=== PATIENT | female | born 1965 | race Caucasian/White ===

== ENCOUNTER → 2016-08-23 | Outpatient (CLI) | payer BC ==
[2016-08-23 08:36] LABS: ALBUMIN 4.1 GM/DL (3.2-5.2); ALBUMIN/GLOBULIN RATIO 1.46 (1.00-1.93); ALKALINE PHOSPHATASE 49 U/L (45-117); ALT/SGPT 25 U/L (12-78); ANION GAP 7 MEQ/L (8-16); AST/SGOT 15 U/L (15-37); BILIRUBIN,TOTAL 0.5 MG/DL (0.2-1.0); BLOOD UREA NITROGEN 16 MG/DL (7-18); CALCIUM LEVEL 8.4 MG/DL (8.5-10.1); CARBON DIOXIDE LEVEL 27 MEQ/L (21-32); CHLORIDE LEVEL 107 MEQ/L (98-107); CHOLESTEROL LEVEL 196 MG/DL (<200); CREATININE FOR GFR 0.84 MG/DL (0.55-1.02); GLOMERULAR FILTRATION RATE > 60.0 (>51); GLUCOSE, FASTING 93 MG/DL (70-105); PERCENT SATURATION 31.6 % (13.2-37.4); POTASSIUM SERUM 3.8 MEQ/L (3.5-5.1); SODIUM LEVEL 141 MEQ/L (136-145); TOTAL IRON BINDING CAPACITY 335 UG/DL (250-450); TOTAL PROTEIN 6.9 GM/DL (6.4-8.2); TRIGLYCERIDES LEVEL 103 MG/DL (<150)
[2016-08-23 08:49] LABS: MEAN CORPUSCULAR HEMOGLOBIN 32.1 pg (27.0-33.0); MEAN CORPUSCULAR HGB CONC 34.4 g/dl (32.0-36.5); MEAN CORPUSCULAR VOLUME 93.4 fl (80.0-96.0); RED CELL DISTRIBUTION WIDTH 12.3 % (11.5-14.5); WHITE BLOOD COUNT 4.7 K/mm3 (4.0-10.0)
== END ==
LOC: M LAB 07:42
PROVIDERS: ATTEND Family Medicine
DX: D64.9 Anemia, unspecified (principal); R53.83 Other fatigue

== ENCOUNTER 2016-10-24 10:31 | Outpatient (CLI) | payer BC ==
[~2016-10-24] VITALS: Ht 174 cm; Wt 97.5 kg
[~2016-10-24 10:31] MED LIST: ASPI1TAB PO; DIPH25CA PO; LIDOCAINE 2% INJ 100 MG/5 ML SDV (FOR ANES.) As Ordered ONE; METO25TA4 PO; NS 1,000 ML IV ONE; OMEP40CA2 PO; PROBCAP4 PO; PROPOFOL 200 MG/20 ML VIAL As Ordered ONE; VITA1CAP7 PO; VITA500T PO
--- NOTE | 2016-10-24 11:40 | ROOR ---
Patient Name: Bonnie Romero Procedure Date: 10/24/2016 11:23 AM Date of : 1965 Age: 51 Room: [facility] Gender: Female Note Status: Finalized Procedure: Upper Endoscopy + Biopsies Indications: Heartburn, Follow-up of Gould's esophagus Providers: Emigdio Jones MD Referring MD: RODRIGO LOOMIS MD Requesting Provider: Medicines: Monitored Anesthesia Care Complications: No immediate complications. Procedure: Pre-Anesthesia Assessment: - The heart rate, respiratory rate, oxygen saturations, blood pressure, adequacy of pulmonary ventilation, and response to care were monitored throughout the procedure. The Endoscope was introduced through the mouth, and advanced to the second part of duodenum. The upper GI endoscopy was accomplished without difficulty. The patient tolerated the procedure well. Findings: The Z-line was irregular and was found 40 cm from the incisors. Multiple biopsies were obtained with cold forceps for evaluation to rule out Gould's Esophagus randomly at the gastroesophageal junction. A small hiatal hernia was present. No other significant abnormalities were identified in a careful examination of the stomach. The exam of the duodenum was otherwise normal. Impression: - Z-line irregular, 40 cm from the incisors. - Small hiatal hernia. - Multiple biopsies were obtained at the gastroesophageal junction. - The examination was otherwise normal. Recommendation: - Patient has a contact number available for emergencies. The signs and symptoms of potential delayed complications were discussed with the patient. Return to normal activities tomorrow. Written discharge instructions were provided to the patient. - High fiber diet. - Discharge patient to home. - Follow an antireflux regimen. - Continue present medications. - Await pathology results. - Telephone GI clinic for pathology results in 1 week. - Return to referring physician. - The findings and recommendations were discussed with the patient's family. Emigdio Jones MD Emigdio Jones MD 10/24/2016 11:40:09 AM This report has been signed electronically. Number of Addenda: 0 Note Initiated On: 10/24/2016 11:23 AM Estimated Blood Loss: Estimated blood loss: none.
--- NOTE | 2016-10-24 12:05 | ROOR ---
Patient Name: Bonnie Romero Procedure Date: 10/24/2016 11:24 AM Date of : 1965 Age: 51 Room: [facility] Gender: Female Note Status: Finalized Procedure: Total Colonoscopy to Cecum Indications: Screening for colorectal malignant neoplasm Providers: Emigdio Jones MD Referring MD: RODRIGO LOOMIS MD Requesting Provider: Medicines: Monitored Anesthesia Care Complications: No immediate complications. Procedure: Pre-Anesthesia Assessment: - The heart rate, respiratory rate, oxygen saturations, blood pressure, adequacy of pulmonary ventilation, and response to care were monitored throughout the procedure. The Colonoscope was introduced through the anus and advanced to the cecum, identified by appendiceal orifice and ileocecal valve. The colonoscopy was performed without difficulty. The patient tolerated the procedure well. The quality of the bowel preparation was excellent. Findings: The perianal and digital rectal examinations were normal. Non-bleeding internal hemorrhoids were found during retroflexion. The hemorrhoids were small and Grade I (internal hemorrhoids that do not prolapse). No other significant abnormalities were identified in a careful examination of the remainder of the colon. The exam was otherwise without abnormality on direct and retroflexion views. Impression: - Non-bleeding internal hemorrhoids. - The examination was otherwise normal on direct and retroflexion views. - No specimens collected. - The exam was otherwise normal to the cecum. Recommendation: - Patient has a contact number available for emergencies. The signs and symptoms of potential delayed complications were discussed with the patient. Return to normal activities tomorrow. Written discharge instructions were provided to the patient. - High fiber diet. - Discharge patient to home. - Continue present medications. - Repeat colonoscopy in 10 years for screening purposes. - Return to referring physician. - The findings and recommendations were discussed with the patient's family. Emidgio Jones MD Emigdio Jones MD 10/24/2016 12:05:12 PM This report has been signed electronically. Number of Addenda: 0 Note Initiated On: 10/24/2016 11:24 AM Estimated Blood Loss: Estimated blood loss: none.
[2016-10-24 12:20] VITALS: BP 149/90
== END 2016-10-24 12:35 | disposition home or self-care (01) ==
LOC: M OPP 10:31
PROVIDERS: ATTEND Internal Medicine Gastroenterology
DX: Z12.11 Encounter for screening for malignant neoplasm of colon (principal); K64.0 First degree hemorrhoids; R12 Heartburn; K22.70 Barrett's esophagus without dysplasia; K22.8 Other specified diseases of esophagus; K44.9 Diaphragmatic hernia without obstruction or gangrene; K58.9 Irritable bowel syndrome, unspecified; I10 Essential (primary) hypertension; Z86.73 Personal history of transient ischemic attack (TIA), and cerebral infarction without residual deficits; Z88.5 Allergy status to narcotic agent; Z79.82 Long term (current) use of aspirin; Z79.899 Other long term (current) drug therapy; Z83.71 Family history of colonic polyps; Z80.3 Family history of malignant neoplasm of breast; Z80.41 Family history of malignant neoplasm of ovary
CPT/HCPCS: 43239; 88305; G0121

== ENCOUNTER → 2016-11-08 | Outpatient (CLI) | payer BC ==
[~2016-11-08] MED LIST changes: +CYCL10TA PO; +DICL1GEL3; +FENT25PA TOP; +IBUP80TA PO; -LIDOCAINE 2% INJ 100 MG/5 ML SDV (FOR ANES.) As Ordered ONE; +METO1TAB32 PO; -NS 1,000 ML IV ONE; +OMEP20CA3 PO; +PERCOCET PO; -PROPOFOL 200 MG/20 ML VIAL As Ordered ONE; +VITA1CAP14 PO
--- NOTE | 2016-11-08 13:26 | REP ---
Right rib series: Five views including PA chest. History: Contusion. Findings: PA chest radiograph shows a small right-sided pneumothorax. An apical pleural air collection is seen measuring 1.1 cm in thickness. There is blunting of the right lateral pleural angle. An azygos lobe is noted incidentally. The lung [place] are otherwise clear. Multiple views of the right ribcage again shows a small right-sided pneumothorax to good advantage. There is a displaced somewhat overriding fracture of the posterolateral right 8th rib. Oblique radiographs show the nondisplaced fracture of the adjacent 9th, 10th, and 11th ribs. No bony destructive lesion is seen. Impression: 1. Posterolateral right 8th through 11th rib fractures. The right 8th rib fracture shows some overriding. The others are nondisplaced. 2. Small right pneumothorax, 1.1 cm. 3. Slight blunting of the right pleural angle. Signed by Raghu Hernandez MD 11/08/2016 02:57 P
== END ==
LOC: M WUC 11:09
PROVIDERS: ATTEND Physician Assistant
DX: S22.41XA Multiple fractures of ribs, right side, initial encounter for closed fracture (principal); X58.XXXA Exposure to other specified factors, initial encounter; Y92.89 Other specified places as the place of occurrence of the external cause; Y93.89 Activity, other specified; Y99.8 Other external cause status

== ENCOUNTER 2016-11-09 10:00 | Inpatient (IN) | payer BC ==
[~2016-11-09] VITALS: Ht 172.7 cm; Wt 101.3 kg
[~2016-11-09 10:00] MED LIST changes: -CYCL10TA PO; -DICL1GEL3; -FENT25PA TOP; -IBUP80TA PO; -METO1TAB32 PO; -OMEP20CA3 PO; -PERCOCET PO; -VITA1CAP14 PO
[2016-11-09] MEDS ORDERED: CYCL10TA PO (10:15)
[2016-11-09] MEDS ORDERED: METO1TAB32 PO (10:15)
[2016-11-09] MEDS ORDERED: DICL1GEL3 (10:15)
[2016-11-09] MEDS ORDERED: IBUP80TA PO (10:15)
[2016-11-09] MEDS ORDERED: NS 1,000 ML IV ONE (11:00)
[2016-11-09] MEDS ORDERED: ONDANSETRON 4MG/2ML VIAL (J2405) IV ONE (11:00)
[2016-11-09] MEDS ORDERED: MORPHINE 2 MG/ML 1ML SYRINGE IV PRN (11:00)
[2016-11-09 11:36] LABS: BASO % 0.6 % (0.0-1.0); EOS # 0.1 K/mm3 (0.0-0.50); EOS % 1.2 % (0.0-3.0); LARGE UNSTAINED CELL # 0.1 K/mm3 (0.0-0.4); LARGE UNSTAINED CELL % 1.8 % (0.0-4.0); LYMPH # 1.6 K/mm3 (1.5-4.5); LYMPH % 20.6 % (24.0-44.0); MEAN CORPUSCULAR HEMOGLOBIN 31.4 pg (27.0-33.0); MEAN CORPUSCULAR HGB CONC 34.4 g/dl (32.0-36.5); MEAN CORPUSCULAR VOLUME 91.5 fl (80.0-96.0); MONO # 0.4 K/mm3 (0.0-0.8); MONO % 5.4 % (0.0-5.0); NEUTROPHILS # 5.5 K/mm3 (1.8-7.7); NEUTROPHILS % 70.4 % (36.0-66.0); PLATELET COUNT, AUTOMATED 278 k/mm3 (150-450); RED CELL DISTRIBUTION WIDTH 12.4 % (11.5-14.5); WHITE BLOOD COUNT 7.8 K/mm3 (4.0-10.0)
[2016-11-09 11:59] LABS: INR 0.94
[2016-11-09 12:05] LABS: ALBUMIN 3.7 GM/DL (3.2-5.2); ALBUMIN/GLOBULIN RATIO 1.03 (1.00-1.93); ALKALINE PHOSPHATASE 61 U/L (45-117); ALT/SGPT 43 U/L (12-78); ANION GAP 8 MEQ/L (8-16); AST/SGOT 31 U/L (15-37); BILIRUBIN,DIRECT 0.1 MG/DL (0.0-0.2); BILIRUBIN,TOTAL 0.6 MG/DL (0.2-1.0); BLOOD UREA NITROGEN 9 MG/DL (7-18); CALCIUM LEVEL 8.6 MG/DL (8.5-10.1); CARBON DIOXIDE LEVEL 25 MEQ/L (21-32); CHLORIDE LEVEL 108 MEQ/L (98-107); CREATININE FOR GFR 0.69 MG/DL (0.55-1.02); GLOMERULAR FILTRATION RATE > 60.0 (>51); GLUCOSE, FASTING 90 MG/DL (70-105); POTASSIUM SERUM 3.6 MEQ/L (3.5-5.1); SODIUM LEVEL 141 MEQ/L (136-145); TOTAL PROTEIN 7.3 GM/DL (6.4-8.2)
[2016-11-09] MEDS ORDERED: ISOVUE-370 76% 100ML VIAL (Q9967) As Ordered ONE (12:10)
[2016-11-09] MEDS ORDERED: MORPHINE 4 MG/ML 1ML SYRINGE IV ONE (12:30)
--- NOTE | 2016-11-09 13:29 | ECGEPIP ---
Stationary ECG Study [facility] - ED Test Date: 2016-11-09 Pat Name: DARRELL CARDENAS Department: Room: - Gender: F Pharmacologist: PRISCILLA : 1965 Requested By: Floresita Vargas Order Number: [id number] Reading MD: Renetta Rodas Measurements Intervals [place] Rate: 76 P: 42 NH: 168 QRS: -16 QRSD: 108 T: 0 QT: 404 QTc: 455 Interpretive Statements SINUS RHYTHM MODERATE VOLTAGE CRITERIA FOR LVH, CONSIDER NORMAL VARIANT MINIMAL ST DEPRESSION Electronically Signed On 11-09-2016 13:29:40 EDT by Renetta Rodas
--- NOTE | 2016-11-09 13:38 | REP ---
CT CHEST WITH IV CONTRAST: HISTORY: Right flank pain. Known rib fracture. Comparison rib radiographs are from November 08, 2016. This showed fractures of the right 8th through 11th ribs and a small right-sided pneumothorax. CT CONTRAST DOSE: 100 mL of Isovue 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 Today's CT study confirms the presence of a tiny right-sided pneumothorax with a small quantity of air accumulated anteriorly and inferiorly in the right hemithorax. There is a small amount of right pleural fluid. There is subsegmental atelectasis with some air bronchograms in the right lower lobe and in the right middle lobe at the base. There is a little fissural thickening on the right. Left lung shows discoid atelectasis in the lower lobe lingula at its base. There is no evidence of mediastinal hematoma. Thoracic aorta enhances homogeneously and is normal in course and contour. The pulmonary arterial tree is unremarkable. There is a small noncalcified pulmonary nodule measuring 4.5 mm in diameter. This is in the right upper lobe abutting the minor fissure. It may be a small pleural plaque. No other significant pulmonary nodule is appreciated. Bone window settings demonstrate fractures of the right 8th, 9th, 10th, and 11th ribs nondisplaced. IMPRESSION: 1. Right 8th through 11th rib fractures. 2. Small quantity of pleural fluid and small pneumothorax on the right. 3. Bilateral lower lobe, right middle lobe, and lingular atelectatic changes. 4. 4.5 mm noncalcified pulmonary nodule in the right upper lobe. Follow-up chest CT study recommended in 6-12 months. Signed by Raghu Hernandez MD 11/09/2016 03:23 P
--- NOTE | 2016-11-09 14:00 | REP ---
CT abdomen and pelvis with IV but without oral contrast: History: Known rib fractures. Right flank pain. CT contrast dose: 100 mL of intravenous Isovue [address] findings: The liver and spleen are normal in size and homogeneous in texture. Pancreas and gallbladder are unremarkable. No adrenal lesion is seen. The kidneys enhance symmetrically and are morphologically intact. No retroperitoneal hematoma or mass lesion is seen. Small and large intestinal bowel loops are unremarkable in the abdomen and pelvis. The patient is status post hysterectomy. There is a cystic lesion in the left ovary or left adnexa measuring 6.5 x 4.3 cm. No right ovarian abnormality. Urinary bladder is intact. No abdominal wall defect is seen. Bone window settings show the right lower rib cage fractures as outlined on the chest CT. No other fracture is seen. Impression: 1. Incidental 6.4 cm cystic lesion left ovary. Ovarian neoplasm cannot be excluded. Consider pelvic sonography. 2. No evidence of intra-abdominal injury. Signed by Raghu Hernandez MD 11/09/2016 03:24 P
[2016-11-09] MEDS: fentaNYL 100 MCG/2 ML INJECTION (J3010) IV PRN ×3 (14:20→17:51)
[2016-11-09] MEDS ORDERED: KCL 20MEQ IN D5/NS 1000ML 1,000 ML IV SCH (14:34)
[2016-11-09] MEDS ORDERED: FENTANYL 2MCG/ML BUPIVACAINE 0.0625% NACL 250ML IV BAG As Ordered ONE (14:41)
[2016-11-09] MEDS ORDERED: fentaNYL 100 MCG/2 ML INJECTION (J3010) As Ordered ONE (14:41)
[2016-11-09] MEDS ORDERED: MIDAZOLAM INJ 2 MG/2 ML VIAL (J2250) As Ordered ONE (14:41)
[2016-11-09] MEDS ORDERED: ACETAMINOPHEN TAB 650MG DOSE (2X325MG) PO PRN (14:45)
[2016-11-09] MEDS ORDERED: LEVALBUTEROL 1.25 MG/0.5 ML CONCENTRATE NEB NEB PRN (14:45)
[2016-11-09] MEDS ORDERED: BISACODYL 10 MG SUPP PR PRN (14:45)
[2016-11-09] MEDS ORDERED: ONDANSETRON 4MG/2ML VIAL (J2405) IV PRN ×2 (14:45→16:15)
[2016-11-09] MEDS ORDERED: VITA1CAP14 PO (15:05)
[2016-11-09] MEDS ORDERED: OMEP20CA3 PO (15:05)
[2016-11-09] MEDS ORDERED: DIPH25CA PO (15:06)
[2016-11-09] MEDS: MIDAZOLAM INJ 2 MG/2 ML VIAL (J2250) IV PRN ×2 (15:20→15:27)
[2016-11-09] MEDS ORDERED: BUPIVACAINE HCL 0.25% 30 ML VIAL As Ordered ONE (15:42)
[2016-11-09] MEDS ORDERED: NALOXONE INJ 0.4 MG/1 ML VIAL (J2310) IV PRN (16:15)
[2016-11-09] MEDS ORDERED: fentaNYL 100 MCG/2 ML INJECTION (J3010) IV PRN (16:15)
[2016-11-09] MEDS ORDERED: WALLBOXKEY XX PRN (16:15)
[2016-11-09] MEDS ORDERED: EPIDURAL/PCA KEYS XX PRN (16:15)
[2016-11-09] MEDS ORDERED: METOCLOPRAMIDE INJ 10MG/2ML VIAL (J2765) IV PRN (16:15)
[2016-11-09] MEDS ORDERED: LR 1,000 ML IV SCH (16:15)
[2016-11-09 16:50] VITALS: BP 133/81
[2016-11-09 17:00] VITALS: BP 136/90
[2016-11-09] MEDS ORDERED: BUPIVACAINE/EPIN 0.25% 30 ML VIAL ONE (17:17)
[2016-11-09] MEDS ORDERED: LIDOCAINE 1% MDV 20ML VIAL ONE (17:17)
[2016-11-09 17:30] VITALS: BP 158/89
[2016-11-09] MEDS: MOM 30ML SUSPENSION UDC PO SCH (17:32)
[2016-11-09] MEDS: KETOROLAC 30 MG/ML VIAL (J1885) IV SCH ×2 (17:32→21:13)
[2016-11-09] MEDS: PANTOPRAZOLE 40MG TAB (PROTONIX) PO SCH (17:33)
[2016-11-09 18:00] VITALS: BP 159/87
[2016-11-09 20:20] VITALS: BP 141/94
[2016-11-09] MEDS: LEVALBUTEROL 1.25 MG/0.5 ML CONCENTRATE NEB NEB SCH (20:24)
[2016-11-09] MEDS: DOCUSATE SODIUM 100 MG CAP PO SCH (21:12)
[2016-11-09] MEDS: HEPARIN SOD (PORCINE) 5000 UNITS/ML VIAL SC SCH (21:14)
[2016-11-10 00:45] VITALS: BP 116/73
[2016-11-10] MEDS: LEVALBUTEROL 1.25 MG/0.5 ML CONCENTRATE NEB NEB SCH ×4 (01:36→19:58)
[2016-11-10 03:45] VITALS: BP 140/87
[2016-11-10] MEDS: KETOROLAC 30 MG/ML VIAL (J1885) IV SCH ×4 (03:47→21:18)
[2016-11-10 05:55] LABS: BASO % 0.4 % (0.0-1.0); EOS # 0.1 K/mm3 (0.0-0.50); EOS % 1.6 % (0.0-3.0); LARGE UNSTAINED CELL # 0.1 K/mm3 (0.0-0.4); LARGE UNSTAINED CELL % 1.1 % (0.0-4.0); LYMPH # 1.6 K/mm3 (1.5-4.5); LYMPH % 25.1 % (24.0-44.0); MEAN CORPUSCULAR HEMOGLOBIN 31.6 pg (27.0-33.0); MEAN CORPUSCULAR HGB CONC 34.2 g/dl (32.0-36.5); MEAN CORPUSCULAR VOLUME 92.4 fl (80.0-96.0); MONO # 0.3 K/mm3 (0.0-0.8); MONO % 4.6 % (0.0-5.0); NEUTROPHILS # 4.2 K/mm3 (1.8-7.7); NEUTROPHILS % 67.2 % (36.0-66.0); PLATELET COUNT, AUTOMATED 240 k/mm3 (150-450); RED CELL DISTRIBUTION WIDTH 12.7 % (11.5-14.5); WHITE BLOOD COUNT 6.2 K/mm3 (4.0-10.0)
[2016-11-10 06:25] LABS: ANION GAP 6 MEQ/L (8-16); BLOOD UREA NITROGEN 12 MG/DL (7-18); CALCIUM LEVEL 7.6 MG/DL (8.5-10.1); CARBON DIOXIDE LEVEL 27 MEQ/L (21-32); CHLORIDE LEVEL 109 MEQ/L (98-107); GLOMERULAR FILTRATION RATE > 60.0 (>51); GLUCOSE, FASTING 91 MG/DL (70-105); POTASSIUM SERUM 3.8 MEQ/L (3.5-5.1); SODIUM LEVEL 142 MEQ/L (136-145)
[2016-11-10 08:00] VITALS: BP 129/86
[2016-11-10] MEDS: MOM 30ML SUSPENSION UDC PO SCH (08:21)
[2016-11-10] MEDS: DOCUSATE SODIUM 100 MG CAP PO SCH ×2 (08:21→21:00)
[2016-11-10] MEDS: PANTOPRAZOLE 40MG TAB (PROTONIX) PO SCH (08:21)
[2016-11-10] MEDS: HEPARIN SOD (PORCINE) 5000 UNITS/ML VIAL SC SCH ×2 (08:22→21:18)
--- NOTE | 2016-11-10 09:00 | REP ---
Chest x-ray: Two views. History: Rib fracture. Pneumothorax. Comparison study November 08, 2016. Findings: An azygos lobe is noted incidentally. A right apical pneumothorax is again seen. This is quite small measuring only 6-7 mm in thickness at the apex. There is however a lower level of inspiration and there is blunting of the right lateral pleural angle suggesting a small amount of pleural fluid. No infiltrate is appreciated. There is an epidural catheter and EKG monitoring electrodes are seen. A slightly overriding fracture of the right 8th rib and an adjacent 7th rib fracture are seen. Impression: Small right apical pneumothorax persists somewhat decreased in size. There is blunting of the right lateral pleural angle and a lesser level of inspiration is seen. Signed by Raghu Hernandez MD 11/10/2016 01:57 P
[2016-11-10 12:00] VITALS: BP 158/92
--- NOTE | 2016-11-10 14:16 | REP ---
CHEST, TWO VIEWS: Two views of the chest are performed and compared to a prior exam of the same day. There is again a tiny right apical pneumothorax, which is stable. Small right effusion is present. There is bibasilar atelectatic change stable. Cardiomediastinal silhouette is unchanged. Right rib fractures are again noted. IMPRESSION: Stable exam. Tiny right apical pneumothorax is unchanged. Signed by Gurwinder Smith MD 11/10/2016 03:17 P
--- NOTE | 2016-11-10 14:19 | HPE ---
DATE OF ADMISSION: 11/09/2016 Ms. Romero is seen at the request of Dr. Floresita Smith of the emergency department. HISTORY OF PRESENT ILLNESS: The patient is a 51-year-old white female who two days ago was riding her horse and trotting when she slipped off her saddle and fell to the ground. The horse did not kick her or trample her. She immediately felt pain on her right side with the "breath being knocked out of her." She slowly regained her breathing and in fact had to remount the horse and ride another 20 minutes to return to the stables. 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 She visited the urgent care which recommended some ibuprofen and she was told that she had one fractured rib. She returned to the emergency room today with increasing pain. She has difficulty taking a deep breath because of the pain and the pain is increased with changing positions. It is a sharp knifelike pain in her right side. She has had no fevers, chills or sweats and no significant cough or sputum production. There has been no weight loss. There is no dysphasia. CT of her chest showed ribs fracture of 8, 9, 10 and 11 with some pleural thickening and a trivial pneumothorax surrounding an azygous lobe of the right side in the upper extent of the hemithorax. PAST MEDICAL HISTORY: 1. Gould's esophagus. 2. Previous transient ischemic attack (TIA) approximately 4 years ago manifested by a right facial droop, transient, did not opt for anticoagulation. 3. Hypertension. MEDICATIONS AT HOME: - ascorbic acid 500 mg daily - aspirin 81 mg daily - cholecalciferol vitamin D 10,000 units daily - cyclobenzaprine - ibuprofen 800 mg every 6 hours as needed pain - metoprolol 25 mg daily ALLERGIES: She states to CODEINE. TRAVEL HISTORY: None to the [facility] or [facility]. 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 OTHER EXPOSURES: She has three dogs, [place] short hair, a Cocke among two of them. No birds or cats. HABITS: Does not smoke. Occasionally drinks. No illicit drugs. REVIEW OF SYSTEMS: CONSTITUTIONAL: Without fevers, chills, sweats or night sweats, without weight loss, in fact weight gain. EYES: Without diplopia. Without transient monocular blindness. Without prior jaundice. NOSE: Without epistaxis. MOUTH: Has her own teeth. RESPIRATORY: See history of present illness. CARDIAC: Without orthopnea or paroxysmal nocturnal dyspnea (PND). Prior myocardial infarction or peripheral edema. GASTROINTESTINAL (GI): Without diarrhea or constipation with occasional nausea and vomiting. Has gastroesophageal reflux disease (GERD) for which she sleep with her head elevated. No hematemesis, melena or hematochezia. GENITOURINARY (): Without dysuria, hematuria or history of renal stones. NEUROLOGIC: Presently without paresthesias , paralyses or transient monocular blindness, without seizures. LYMPHATICS: Without lumps and bumps in the neck, axilla or groin. ENDOCRINE: Without diabetes. Without thyroid disease. PSYCHIATRIC: Without pathological anxieties, depression or psychoses. SKIN: She developed a papular rash a few days ago after riding in the [employer]. This was pruritic. Since then, it has disappeared. It is not accompanied by pain of the upper extremities. She showed me a photograph of the rash. At urgent care it was termed to be insect bites; however, it does not look like too numerous to count bites. The lesions have since disappeared and there is no crusting. PHYSICAL EXAMINATION: Well-developed, well-nourished white female in moderate distress from chest pain. Temperature is 98.6 with a heart rate of 81, with a regular rate and rhythm, blood pressure is 155/98 with a respiratory rate of 18 without the use of accessory muscles who is 97% saturated on room air. EYES: Pupils equal, round and reactive to light. Extraocular muscles intact. Sclera nonicteric. NOSE: Without deformity. MOUTH: Shows her mucous membranes to be pink and moist. Lips and commissures without lesions. There is no thrush. Teeth are in good repair. NECK: Supple. There is no jugular venous distention (JVD). No subcutaneous emphysema. Trachea is midline. There is no hepatomegaly or lymphadenopathy and she has 2+ carotid upstrokes without bruits. LUNGS: Show equal breath sounds on either side. Percussion note is full to the diaphragm. She has right lateral inferior chest wall tenderness to palpation. CARDIAC EXAM: Without murmurs, clicks, gallops or rubs. I cannot feel her PMI. S1 and S2 are normal. ABDOMEN: Soft, nontender. Bowel sounds are positive. There is no hepatomegaly. No CVA tenderness. There is some slight tenderness to deep palpation in the epigastrium, but there are no aortic pulsations. There are no aortic bruits. EXTREMITIES: Show no pretibial edema. No calf tenderness. No differential swelling of the upper extremities. SKIN: Warm, dry and perfuse without cyanosis or mottling including that of the nail beds and the knees. NEURO: Shows II through XII intact along with gross motor and gross sensation intact. Gait is not tested. PSYCHIATRIC: Shows her to be awake, alert and oriented times three with appropriate mood and affect and conversational. INVESTIGATIONS: White count is 7.8 with a hemoglobin and hematocrit of 14.0 and 40.8 with a platelet count of 278. Differential shows 78% neutrophils, 20% lymphocytes, 5% monocytes. There are no immature forms, no toxic granulations. Chemistries show normal electrolytes with a BUN and creatinine of 9 and 0.69, glucose of 90, calcium of 8.6 with a corresponding albumin of 3.7. Liver functions were normal. Her PT/INR are 12.6 and 0.94 respectively with a PTT of 27 seconds. Urinalysis does not show any hematuria nor does it show leukocyte esterase. Her CT of her chest done today shows a trivial pneumothorax in the upper extent of the right hemithorax. She has an azygous lobe. She has rib fractures of 8, 9, 10 and 11. There are no flail segments. There is no mediastinal lymphadenopathy nor is there subcutaneous emphysema. The liver is intact as is the spleen and adrenals are also intact. There is no pericardial effusion. IMPRESSION: 1. Multiple rib fractures. 2. Poor pulmonary toilet secondary to pain. 3. Hypertension. 4. Gould's esophagus. 5. Gastroesophageal reflux disease (GERD). 6. Known ovarian cyst. 7. Status post TIA in the distant past, not on anticoagulation. PLAN AND DISCUSSION: The mainstay of her treatment will be pain control so that we can work on her pulmonary toilet. Will provide her with an incentive spirometer and PEP therapy. I will ask anesthesia to place an epidural and will no doubt keep her in the hospital for the next 4-5 days before weaning the epidural and converting her over to oral pain medications.
[2016-11-10] MEDS: FENTANYL/BUPIVACAINE/NACL BAG 250 ML EPIDURAL SCH ×2 (15:03→16:15)
[2016-11-10 16:00] VITALS: BP 154/87
[2016-11-10 20:00] VITALS: BP 142/76
[2016-11-10] MEDS: diphenhydrAMINE INJ 50MG/ML VIAL (J1200) IV PRN (21:25)
[2016-11-11] VITALS: BP 140/75
[2016-11-11 00:07] LABS: Lyme Disease IgG/IgM Antibodie <0.91 ISR (0.00-0.90); Lyme Disease IgM Ab Quantitati <0.80 index (0.00-0.79)
[2016-11-11] MEDS: LEVALBUTEROL 1.25 MG/0.5 ML CONCENTRATE NEB NEB SCH ×4 (02:00→20:51)
[2016-11-11] MEDS: KETOROLAC 30 MG/ML VIAL (J1885) IV SCH ×4 (03:57→20:44)
[2016-11-11 04:00] VITALS: BP 135/87
[2016-11-11] MEDS: diphenhydrAMINE INJ 50MG/ML VIAL (J1200) IV PRN ×2 (04:04→20:44)
[2016-11-11 06:06] LABS: BASO % 0.2 % (0.0-1.0); EOS # 0.1 K/mm3 (0.0-0.50); EOS % 2.3 % (0.0-3.0); LARGE UNSTAINED CELL # 0.1 K/mm3 (0.0-0.4); LARGE UNSTAINED CELL % 1.3 % (0.0-4.0); LYMPH # 1.3 K/mm3 (1.5-4.5); LYMPH % 19.4 % (24.0-44.0); MEAN CORPUSCULAR HEMOGLOBIN 32.3 pg (27.0-33.0); MEAN CORPUSCULAR HGB CONC 34.9 g/dl (32.0-36.5); MEAN CORPUSCULAR VOLUME 92.4 fl (80.0-96.0); MONO # 0.3 K/mm3 (0.0-0.8); MONO % 4.8 % (0.0-5.0); NEUTROPHILS # 4.5 K/mm3 (1.8-7.7); PLATELET COUNT, AUTOMATED 239 k/mm3 (150-450); RED CELL DISTRIBUTION WIDTH 12.8 % (11.5-14.5); WHITE BLOOD COUNT 6.3 K/mm3 (4.0-10.0)
[2016-11-11 06:24] LABS: ANION GAP 7 MEQ/L (8-16); BLOOD UREA NITROGEN 8 MG/DL (7-18); CALCIUM LEVEL 8.4 MG/DL (8.5-10.1); CARBON DIOXIDE LEVEL 28 MEQ/L (21-32); CHLORIDE LEVEL 107 MEQ/L (98-107); GLOMERULAR FILTRATION RATE > 60.0 (>51); GLUCOSE, FASTING 91 MG/DL (70-105); POTASSIUM SERUM 3.8 MEQ/L (3.5-5.1); SODIUM LEVEL 142 MEQ/L (136-145)
[2016-11-11 08:00] VITALS: BP 138/94
[2016-11-11] MEDS: DOCUSATE SODIUM 100 MG CAP PO SCH ×2 (09:18→20:44)
[2016-11-11] MEDS: PANTOPRAZOLE 40MG TAB (PROTONIX) PO SCH (09:18)
[2016-11-11] MEDS: MOM 30ML SUSPENSION UDC PO SCH (09:18)
[2016-11-11] MEDS: HEPARIN SOD (PORCINE) 5000 UNITS/ML VIAL SC SCH ×2 (09:19→20:44)
--- NOTE | 2016-11-11 10:54 | REP ---
CHEST X-RAY: Two views. HISTORY: Rib fracture. Pneumothorax. Followup. COMPARISON STUDY: November 10, 2016. FINDINGS: A tiny 1 mm sliver of right apical pleural air persists. There is blunting of the right lateral pleural angle. Displaced right lateral 7th rib fracture and 8th rib fractures again seen. Epidural catheter is seen along with EKG electrodes. An azygos lobe is noted. No new infiltrate is seen. Signed by Raghu Hernandez MD 11/11/2016 09:23 A
--- NOTE | 2016-11-11 10:54 | IPN ---
DATE: 11/10/2016 Ms. Romero has achieve almost a pain free state with the epidural. She is breathing well. There have been no fever, chills or sweats. Her vital signs show a maximum temperature (Tmax) of 98.9 with a heart rate that ranges between 69-80 in a sinus rhythm, respiratory rate that is constant at 18, who is 96-94% saturated on room air and whose blood pressure is ranging between 116/73 to 154/87. Her intake and output for the past 24 hours has been recorded as 750 in and 750 out for equalilty. The past 18 hours she has had 240 in and 2460 out for a negativity of 2210 mL. She weighs 101.5 kg today compared to 100.3 kg yesterday. On physical examination, her lungs show normal vesicular sounds on either side. There is no subcutaneous emphysema. Percussion note is full to the diaphragm. Cardiac exam is without murmurs, clicks, gallops, or rubs. I cannot feel her point of maximum impulse (PMI). S1, S2 are normal. Abdomen is soft, nontender. Bowel sounds are positive. There is no hepatomegaly, no costovertebral angle (CVA) tenderness. Extremities show no pretibial edema, no calf tenderness. No differential swelling of the upper extremities. Skin is warm, dry and perfused without cyanosis or mottling, including that of the nail beds and the knees. Neck is supple. There is no jugular venous distention. No subcutaneous emphysema. Trachea is midline. Mouth shows her mucous membranes to be pink and moist. Lips and commissures without lesions. There is no thrush. Eyes show her pupils to be equal and reactive. Extraocular motor intact. Sclerae anicteric. Neurologic shows II-XII intact along with gross motor and gross sensation intact. Gait is not tested. Psychiatric shows her to be awake and alert, oriented times three with appropriate mood and affect and conversational. White count today is 6.2 with hemoglobin and hematocrit of 12.5 and 36.6. Platelet count is 240 and differential shows 87% neutrophils, 25% lymphocytes, 4% monocytes. There are no immature forms, no toxic granulations. Electrolytes are essentially normal with a BUN and creatinine of 12 and 0.70 with a glucose of 91 and a calcium of 7.6. Her Lyme disease IgG, IgM screening is still pending. Her chest x-ray shows her lung fully expanded to the chest wall except for a small, 5 mm rim of a pneumothorax under her apex of the right side. There are no infiltrates and costophrenic angles are sharp. IMPRESSION: 1. Multiple rib fractures, right side, 8, 9, 10 and 11. 2. Poor pulmonary toilet secondary to pain, much improved. 3. Hypertension. 4. Gould's esophagus. 5. Gastroesophageal reflux disease (GERD). 6. Known ovarian cyst. 7. Status post transient ischemic attack (TIA) in the distant past, not on anticoagulation. PLAN AND DISCUSSION: We will continue the epidural for the next 4-5 days. We will then wean her from the epidural to oral pain control. At which time, we should be able to fairly well control her pain with oral medications. She may need a Duragesic patch in addition. She is working with the incentive spirometer four times an hour, and her pulmonary toilet is doing well.
[2016-11-11] MEDS ORDERED: SLF 3 ML SYR IV PRN (11:15)
[2016-11-11 12:00] VITALS: BP 134/93
[2016-11-11] MEDS: FENTANYL/BUPIVACAINE/NACL BAG 250 ML EPIDURAL SCH (14:36)
[2016-11-11] MEDS: SLF 3 ML SYR IV SCH ×2 (14:37→20:45)
[2016-11-11 16:00] VITALS: BP 155/90
[2016-11-11 19:12] VITALS: BP 170/96
[2016-11-12] VITALS (7 sets, daily range): BP systolic 118–163; BP diastolic 75–104
[2016-11-12] MEDS: LEVALBUTEROL 1.25 MG/0.5 ML CONCENTRATE NEB NEB SCH ×4 (02:00→20:04)
[2016-11-12] MEDS: KETOROLAC 30 MG/ML VIAL (J1885) IV SCH ×4 (02:47→20:22)
[2016-11-12 05:37] LABS: BASO % 0.3 % (0.0-1.0); EOS # 0.1 K/mm3 (0.0-0.50); EOS % 2.4 % (0.0-3.0); LARGE UNSTAINED CELL # 0.1 K/mm3 (0.0-0.4); LARGE UNSTAINED CELL % 1.7 % (0.0-4.0); LYMPH # 1.3 K/mm3 (1.5-4.5); LYMPH % 22.4 % (24.0-44.0); MEAN CORPUSCULAR HEMOGLOBIN 31.9 pg (27.0-33.0); MEAN CORPUSCULAR HGB CONC 34.3 g/dl (32.0-36.5); MEAN CORPUSCULAR VOLUME 92.8 fl (80.0-96.0); MONO # 0.4 K/mm3 (0.0-0.8); MONO % 6.4 % (0.0-5.0); NEUTROPHILS % 66.7 % (36.0-66.0); PLATELET COUNT, AUTOMATED 267 k/mm3 (150-450); RED CELL DISTRIBUTION WIDTH 12.6 % (11.5-14.5); WHITE BLOOD COUNT 5.9 K/mm3 (4.0-10.0)
[2016-11-12] MEDS: SLF 3 ML SYR IV SCH ×3 (05:45→22:00)
[2016-11-12 05:53] LABS: ANION GAP 6 MEQ/L (8-16); BLOOD UREA NITROGEN 9 MG/DL (7-18); CALCIUM LEVEL 8.6 MG/DL (8.5-10.1); CARBON DIOXIDE LEVEL 29 MEQ/L (21-32); CHLORIDE LEVEL 107 MEQ/L (98-107); CREATININE FOR GFR 0.78 MG/DL (0.55-1.02); GLOMERULAR FILTRATION RATE > 60.0 (>51); GLUCOSE, FASTING 94 MG/DL (70-105); POTASSIUM SERUM 3.8 MEQ/L (3.5-5.1); SODIUM LEVEL 142 MEQ/L (136-145)
--- NOTE | 2016-11-12 08:17 | REP ---
Chest two views HISTORY: Pneumothorax Comparison: 11/11/2016 The lungs are clear. A small right pleural effusion is present unchanged compared to the previous study. The heart is normal in size. The pulmonary vasculature is normal in appearance. There are fractures of the right six there is ribs. There is no pneumothorax. IMPRESSION: 1. Small right pleural effusion unchanged compared to the previous study. 2. There is no pneumothorax. Signed by Heriberto Arana MD 11/12/2016 08:08 A
[2016-11-12] MEDS: PANTOPRAZOLE 40MG TAB (PROTONIX) PO SCH (08:20)
[2016-11-12] MEDS: HEPARIN SOD (PORCINE) 5000 UNITS/ML VIAL SC SCH ×2 (08:20→20:21)
[2016-11-12] MEDS: DOCUSATE SODIUM 100 MG CAP PO SCH ×2 (08:20→20:21)
[2016-11-12] MEDS: MOM 30ML SUSPENSION UDC PO SCH (08:20)
--- NOTE | 2016-11-12 09:53 | IPN ---
DATE: 11/11/2016 Ms. Romero remains nearly pain free on the epidural at 10 mL an hour. She is moving about and coughing well. Her vital signs show a T-max of 99.1 with a heart rate that ranges between 74 and 89 in a sinus rhythm, respiratory rate 18-20 without use of accessory muscles who is 98-91% saturated on room air and has blood pressures ranging between 154/87 to 140/75. Her intake and output over the past 24 hours has been recorded at 1680 in and 4825 out for a negativity of 3100 mL. All of her intake has been oral intake of 1680 mL. Her weight is pending today. On physical examination, her lungs show normal vesicular sounds on either side with a percussion note that is full to the diaphragm on either side. Cardiac exam is without murmurs, clicks, gallops or rubs. I cannot feel her PMI. S1 and S2 are normal. Abdomen is soft, nontender, bowel sounds are positive. There is no hepatomegaly. No CVA tenderness. Extremities show no pretibial edema. No calf tenderness. No differential swelling of the upper extremities. Skin is warm, dry and perfused without cyanosis or mottling including that of the nail beds and knees. Neck is supple. There is no jugular venous distention. No subcutaneous emphysema. Trachea is midline. Mouth shows her mucous membranes to be pink and moist. Lips and commissures are without lesions. No thrush. Eyes show her pupils to be equal and reactive. Extraocular motor intact. Sclera anicteric. Neuro shows II through XII intact with gross motor and gross sensation intact. Gait is not tested. Psychiatric shows her to be awake and alert, oriented times three with appropriate mood and affect and conversational. Her white count today is 6.3 with hemoglobin and hematocrit of 12.0 and 36.3 unchanged from yesterday with a platelet count of 239. Differential shows 72% neutrophils, 9% lymphocytes, 4% monocytes. There are no immature forms. No toxic granulations. Her electrolytes are normal with a BUN and creatinine of 8 and 0.70, glucose of 91, calcium of 8.4. Her chest x-ray shows her lung fully expanded to the chest wall except for a 3 mm separation at the top of the apex of the right side. There are no infiltrates. The costophrenic angles are sharp on the left and with a slight blunting on the right. Review of her CT scan showed a noncalcified 4 mm nodule in the right upper lobe. This looks to have very smooth contours and probably represents a granuloma. There is no smoking history and she has no risk factors for lung cancer. Nonetheless, we are obligated to follow this in 6 months. IMPRESSION: 1. Multiple rib fractures 8, 9, 10 and 11 right side. 2. Poor pulmonary toilet secondary to pain, resolved. 3. Hypertension. 4. Gould's esophagus. 5. Gastroesophageal reflux disease (GERD). 6. Ovarian cyst, 4 x 6 cm. 7. Status post transient ischemic attack (TIA) in the distant past. 8. Solitary pulmonary nodule. PLAN AND DISCUSSION: As an outpatient, I will refer her to paralegals for evaluation of the ovarian cyst. I plan to wean her epidural on Monday and convert her over to oral pain medications. Hopefully I am aiming for a discharge date of Monday. We are obligated to follow the nodule at 6 month interval and I will arrange that as an outpatient through my office when she comes back to see me in post hospitalization followup.
[2016-11-12] MEDS: CYCLOBENZAPRINE 10 MG TAB PO SCH (11:19)
[2016-11-12] MEDS: ASCORBIC ACID 500 MG TAB PO SCH (11:20)
[2016-11-12] MEDS: FENTANYL/BUPIVACAINE/NACL BAG 250 ML EPIDURAL SCH (11:20)
[2016-11-12] MEDS: METOPROLOL SUCC *XL* 25MG TAB (TopROL *XL*) PO SCH (11:20)
[2016-11-13] VITALS (7 sets, daily range): BP systolic 112–170; BP diastolic 78–92
[2016-11-13] MEDS: LEVALBUTEROL 1.25 MG/0.5 ML CONCENTRATE NEB NEB SCH ×4 (01:14→19:47)
[2016-11-13] MEDS: KETOROLAC 30 MG/ML VIAL (J1885) IV SCH ×4 (03:00→20:41)
[2016-11-13] MEDS: SLF 3 ML SYR IV SCH ×3 (05:27→20:41)
[2016-11-13 05:51] LABS: BASO % 0.4 % (0.0-1.0); EOS # 0.2 K/mm3 (0.0-0.50); EOS % 3.4 % (0.0-3.0); LARGE UNSTAINED CELL # 0.1 K/mm3 (0.0-0.4); LYMPH # 1.7 K/mm3 (1.5-4.5); MEAN CORPUSCULAR HGB CONC 33.1 g/dl (32.0-36.5); MEAN CORPUSCULAR VOLUME 93.7 fl (80.0-96.0); MONO # 0.4 K/mm3 (0.0-0.8); MONO % 6.3 % (0.0-5.0); NEUTROPHILS # 3.7 K/mm3 (1.8-7.7); PLATELET COUNT, AUTOMATED 257 k/mm3 (150-450); RED CELL DISTRIBUTION WIDTH 12.9 % (11.5-14.5)
[2016-11-13 06:09] LABS: ANION GAP 9 MEQ/L (8-16); BLOOD UREA NITROGEN 13 MG/DL (7-18); CALCIUM LEVEL 7.9 MG/DL (8.5-10.1); CARBON DIOXIDE LEVEL 27 MEQ/L (21-32); CHLORIDE LEVEL 107 MEQ/L (98-107); CREATININE FOR GFR 0.71 MG/DL (0.55-1.02); GLOMERULAR FILTRATION RATE > 60.0 (>51); GLUCOSE, FASTING 85 MG/DL (70-105); POTASSIUM SERUM 3.9 MEQ/L (3.5-5.1); SODIUM LEVEL 143 MEQ/L (136-145)
--- NOTE | 2016-11-13 08:24 | REP ---
Chest two views HISTORY: Pneumothorax Comparison: 11/12/2016 The lungs are clear. A small right pleural effusion is present unchanged compared to the previous study. The heart is normal in size. The pulmonary vasculature is normal in appearance. There are fractures of the right sixth through 8th ribs. IMPRESSION: Small right pleural effusion unchanged compared to the previous study. Signed by Heriberto Arana MD 11/13/2016 08:15 A
[2016-11-13] MEDS: HEPARIN SOD (PORCINE) 5000 UNITS/ML VIAL SC SCH ×2 (08:30→20:41)
[2016-11-13] MEDS: ASCORBIC ACID 500 MG TAB PO SCH (08:31)
[2016-11-13] MEDS: CYCLOBENZAPRINE 10 MG TAB PO SCH (08:31)
[2016-11-13] MEDS: DOCUSATE SODIUM 100 MG CAP PO SCH ×2 (08:31→20:41)
[2016-11-13] MEDS: PANTOPRAZOLE 40MG TAB (PROTONIX) PO SCH (08:31)
[2016-11-13] MEDS: MOM 30ML SUSPENSION UDC PO SCH (08:32)
[2016-11-13] MEDS: METOPROLOL SUCC *XL* 25MG TAB (TopROL *XL*) PO SCH (08:32)
[2016-11-13] MEDS: NORCO, ANEXSIA 5/325MG TABLET (HYDROcodone/ACETAMINOPHEN) PO PRN ×3 (10:35→17:29)
--- NOTE | 2016-11-13 10:48 | IPN ---
DATE: 11/12/2016 Ms. Romero has again had a fairly pain free night; however, she has noticed when twisting and bending over that she has residual chest discomfort. She is breathing well. Her vital signs show a maximum temperature (t-max) of 98.8 with a heart rate that ranges between 69 and 79 in a sinus rhythm, respiratory rate that is constant at 18, who is 96% saturated on room air and whose blood pressure is now ranging between 118/78 to 152/104. Her intake and output over the past 24 hours has been recorded at 4800 in and 4200 out for a positivity of 600 mL. She weighs 102.2 kg today compared to 101.5 kg two days ago. PHYSICAL EXAMINATION: LUNGS: Her lungs show equal breath sounds on either side without wheezes, rhonchi or rales. Percussion note is full to the diaphragm. CARDIAC EXAM: Without murmurs, clicks, gallops or rubs. I cannot feel her point of maximum impulse (PMI). S1, S2 are normal. ABDOMEN: Soft, nontender. Bowel sounds positive. There is no hepatomegaly. No costovertebral angle tenderness. EXTREMITIES: Show no pretibial edema. No calf tenderness. No differential swelling of the upper extremities. SKIN: Warm, dry and perfused without cyanosis or mottling, including that of the nail beds and knees. NECK: Supple. There is no jugular venous distention. No subcutaneous emphysema. Trachea is midline. MOUTH: Shows his mucous membranes to be pink and moist. Lips and commissures without lesions. There is no thrush. EYES: Show her pupils to be equal and reactive. Extraocular motion intact. Sclerae anicteric. NEUROLOGIC: Shows II through XII intact with gross motor and gross sensation intact. Gait is not tested. PSYCHIATRIC: Shows her to be awake and alert, oriented times three with appropriate mood and affect and conversational. Her white count today is 5.9 with hemoglobin and hematocrit of 12.5 and 36.4 and a platelet count of 267 and stable. Differential shows 66% neutrophils, 22% lymphocytes, 6% monocytes. There are no immature forms. No toxic granulations. Her electrolytes are normal with a BUN and creatinine of 9 and 0.78. She remains on Toradol. Glucose of 94 with a calcium of 8.6. Her chest x-ray shows her lung fully expanded to the chest wall. I no longer see a line consistent with an air space. Her rib fractures seem to be a bit more dislocated than they have before and I suspect it is secondary to motion in breathing. The right costophrenic angle is marginally blunted. I see no infiltrates, either on the PA or lateral view. IMPRESSION: 1. Multiple rib fractures 8, 9, 10 and 11 right side. 2. Poor pulmonary toilet secondary to pain, resolved. 3. Hypertension. 4. Gould's esophagus. 5. Gastroesophageal reflux disease (GERD). 6. Ovarian cyst. 7. Status post transient ischemic attack (TIA) in the distant past. 8. Solitary pulmonary nodule. PLAN AND DISCUSSION: Tomorrow we will start to wean her epidural. We will restart her metoprolol. Once weaning her epidural, we will change her over to oral pain control. She may also need a Duragesic patch. Again, I am hoping that we can discharge her on Monday.
[2016-11-13] MEDS: FENTANYL/BUPIVACAINE/NACL BAG 250 ML EPIDURAL SCH (11:02)
--- NOTE | 2016-11-13 15:14 | IPN ---
DATE: 11/13/2016 Ms. Romero' pain control is still satisfactory. We are going to wean her epidural today. She is able to walk around. She did get a little bit dizzy today on her third round on the circuit. Her vital signs show a maximum temperature (t-max) of 99.4 with a heart rate that ranges between 72 and 86 in a sinus rhythm, respiratory rate that is constant at 18, who is 95% saturated on room air, and whose blood pressure is ranging between 133/75 to 163/102. Her intake and output over the past 24 hours has been recorded at 3600 in and 5975 out for a negativity of 2375 mL. She weighs 101.7 kg today compared to 102.2 kg yesterday. PHYSICAL EXAMINATION: LUNGS: Her lungs show bilateral equal normal vesicular sounds. There are no wheezes, rhonchi or rales. Percussion note is full to the diaphragm. CARDIAC EXAM: Without murmurs, clicks, gallops or rubs. I cannot feel her point of maximum impulse (PMI). S1, S2 are normal. ABDOMEN: Soft, nontender. Bowel sounds positive. There is no hepatomegaly. No costovertebral angle tenderness. EXTREMITIES: Show no pretibial edema. No calf tenderness. No differential swelling of the upper extremities. SKIN: Warm, dry and perfused without cyanosis or mottling, including that of the nail beds and knees. NECK: Supple. There is no jugular venous distention. No subcutaneous emphysema. Trachea is midline. MOUTH: Shows her mucous membranes to be pink and moist. Lips and commissures without lesions. There is no thrush. EYES: Show her pupils to be equal and reactive. Extraocular motion intact. Sclerae anicteric. NEUROLOGIC: Shows II through XII intact with gross motor and gross sensation intact. Gait is also intact. PSYCHIATRIC: Shows her to be awake and alert, oriented times three with appropriate mood and affect and conversational. Her white count today is 6.0 with a hemoglobin and hematocrit of 12.1 and 36.7 with a platelet count of 267. Her differential shows 62% neutrophils, 26% lymphocytes, 6% monocytes. There are no immature forms. No toxic granulations. Chemistries today show normal electrolytes with a BUN and creatinine of 13 and 0.71. She remains on Toradol. Glucose is 85 with a calcium of 7.9. Her chest x-ray today shows her lung fully expanded to the chest wall. Rib fractures are evident. There is some minor blunting of the right costophrenic angle. There are no other infiltrates, including that on the lateral film. IMPRESSION: 1. Multiple rib fractures 8, 9, 10 and 11 on the right side. 2. Poor pulmonary toilet secondary to pain, completely resolved. 3. Hypertension. 4. Gould's esophagus. 5. Gastroesophageal reflux disease (GERD). 6. Ovarian cyst, 4 x 6 cm. 7. Status post transient ischemic attack (TIA) in the distant past. 8. Solitary pulmonary nodule. PLAN AND DISCUSSION: We will wean her epidural today. We will give her oral pain medications during the wean. Depending upon how much pain medication she will need, we will determine whether I will place her on a Duragesic patch in addition to oral analgesia. Plan for discharge in the morning.
[2016-11-13] MEDS: PERCOCET 5MG/325MG TAB PO PRN ×3 (16:29→22:54)
[2016-11-14] MEDS: LEVALBUTEROL 1.25 MG/0.5 ML CONCENTRATE NEB NEB SCH ×3 (01:12→13:45)
[2016-11-14] MEDS: KETOROLAC 30 MG/ML VIAL (J1885) IV SCH ×2 (02:53→08:50)
[2016-11-14] MEDS: SLF 3 ML SYR IV SCH ×2 (02:53→12:57)
[2016-11-14] MEDS: PERCOCET 5MG/325MG TAB PO PRN ×3 (04:23→12:57)
[2016-11-14 04:45] VITALS: BP 134/79
[2016-11-14 05:20] LABS: BASO % 0.7 % (0.0-1.0); EOS # 0.2 K/mm3 (0.0-0.50); EOS % 3.8 % (0.0-3.0); LARGE UNSTAINED CELL # 0.1 K/mm3 (0.0-0.4); LYMPH # 1.8 K/mm3 (1.5-4.5); LYMPH % 32.3 % (24.0-44.0); MEAN CORPUSCULAR HEMOGLOBIN 32.1 pg (27.0-33.0); MEAN CORPUSCULAR HGB CONC 34.1 g/dl (32.0-36.5); MEAN CORPUSCULAR VOLUME 94.3 fl (80.0-96.0); MONO # 0.3 K/mm3 (0.0-0.8); MONO % 6.1 % (0.0-5.0); NEUTROPHILS # 2.9 K/mm3 (1.8-7.7); NEUTROPHILS % 55.1 % (36.0-66.0); PLATELET COUNT, AUTOMATED 277 k/mm3 (150-450); RED CELL DISTRIBUTION WIDTH 13.1 % (11.5-14.5); WHITE BLOOD COUNT 5.2 K/mm3 (4.0-10.0)
[2016-11-14 05:35] LABS: ANION GAP 8 MEQ/L (8-16); BLOOD UREA NITROGEN 14 MG/DL (7-18); CALCIUM LEVEL 8.4 MG/DL (8.5-10.1); CARBON DIOXIDE LEVEL 28 MEQ/L (21-32); CHLORIDE LEVEL 105 MEQ/L (98-107); CREATININE FOR GFR 0.77 MG/DL (0.55-1.02); GLOMERULAR FILTRATION RATE > 60.0 (>51); GLUCOSE, FASTING 85 MG/DL (70-105); POTASSIUM SERUM 4.2 MEQ/L (3.5-5.1); SODIUM LEVEL 141 MEQ/L (136-145)
[2016-11-14 08:00] VITALS: BP 130/79
[2016-11-14] MEDS: MOM 30ML SUSPENSION UDC PO SCH (08:48)
[2016-11-14] MEDS: DOCUSATE SODIUM 100 MG CAP PO SCH (08:48)
[2016-11-14] MEDS: CYCLOBENZAPRINE 10 MG TAB PO SCH (08:48)
[2016-11-14] MEDS: PANTOPRAZOLE 40MG TAB (PROTONIX) PO SCH (08:48)
[2016-11-14] MEDS: ASCORBIC ACID 500 MG TAB PO SCH (08:49)
[2016-11-14] MEDS: HEPARIN SOD (PORCINE) 5000 UNITS/ML VIAL SC SCH (08:49)
[2016-11-14] MEDS: METOPROLOL SUCC *XL* 25MG TAB (TopROL *XL*) PO SCH (08:49)
[2016-11-14] MEDS ORDERED: fentaNYL 25 MCG/HR PATCH TOP SCH (09:00)
[2016-11-14] MEDS ORDERED: FENTANYL REMOVAL DOCUMENTATION MISC XX SCH (10:45)
[2016-11-14 12:00] VITALS: BP 134/76
--- NOTE | 2016-11-14 12:33 | CR ---
DATE OF CONSULTATION: 11/14/2016 51-year-old, (G) 1, para (P) 1 female, hospital day #5, after suffering multiple rib fractures falling of a horse, she is admitted for essentially pain control and improvement in respiratory function. CT scan showed incidental finding of a 6 x 4 cm ovarian cyst involving the left ovary. Patient admits to intermittent pelvic pain in the last month prior to her accident. She has a history of recurrent ovarian cysts in the past, which have resolved spontaneously. Patient had a hysterectomy several years ago and thus, does not get periods. MEDICAL HISTORY: 1. Gould's esophagus. 2. History of transient ischemic attack (TIA) 4 years ago and no current anticoagulation. 3. Hypertension. SURGICAL HISTORY: 1. 2009 hysteroscopy, dilation and curettage with NovaSure endometrial ablation for heavy periods. 2. 2012 total vaginal hysterectomy with anterior vaginal wall repair. MEDICATIONS: - baby aspirin. - cholecalciferol (vitamin D) - cyclobenzaprine - ibuprofen - ascorbic acid ALLERGIES: CODEINE. SOCIAL HISTORY: The patient lives with her and her three dogs. She does not smoke. She occasionally drinks alcohol. 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 FAMILY HISTORY: She has a history of ovarian cancer and breast cancer if first degree relatives. She has been tested for the BRCA gene and is negative per patient report. PHYSICAL EXAMINATION: Blood pressure 130/79. Pulse 67. Respiratory rate 18. Temperature 97.0. She appears uncomfortable with movement. Head and neck exam is normal. Lungs clear. Heart regular. Abdomen is soft and nontender. Pelvic exam is deferred at this time. Extremities are nontender, no edema. CT scan shows 6 x 4 cm cystic structure involving the left ovary. The uterus is surgically absent. There is no free fluid or other suspicious masses in the pelvis. ASSESSMENT: 51-year-old female status post chest trauma with multiple rib fractures, plus incidental finding of a left ovarian cyst. PLAN: Patient will followup in the office and will have a followup ultrasound prior to that visit to assess for resolution of the ovarian cyst. The cyst appears simple and may resolve on its own. Prior imaging 2012 did not reveal any significant ovarian cyst and this likely is a functional cyst. Arrangements will be made for followup as outpatient.
--- NOTE | 2016-11-14 14:44 | REP ---
Chest x-ray: Two views. History: Rib fracture, pneumothorax. Comparison chest x-ray November 13, 2016. Findings: The lungs are symmetrically aerated and no infiltrate is seen. There is blunting of the right lateral and to a lesser extent left lateral pleural angle. The posterior pleural angles appear sharp. There is no visible pneumothorax on today's chest x-ray. To right-sided rib fractures are again seen. Azygos lobe is again noted. Cardiomediastinal silhouette remain unremarkable. Impression: Slight blunting of the pleural angles. No visible pneumothorax today. Signed by Raghu Hernandez MD 11/14/2016 02:44 P
[2016-11-14] MEDS: NORCO, ANEXSIA 5/325MG TABLET (HYDROcodone/ACETAMINOPHEN) PO PRN (15:42)
[2016-11-14 16:00] VITALS: BP 142/76
[2016-11-14] MEDS ORDERED: FENT25PA TOP (16:09)
[2016-11-14] MEDS ORDERED: PERCOCET PO (16:09)
--- NOTE | 2016-11-14 20:44 | DSES ---
DATE OF ADMISSION: 11/09/2016 DATE OF DISCHARGE: 11/14/2016 DISCHARGE DIAGNOSES: 1. Multiple rib fractures 8, 9, 10 and 11 right side. 2. Poor pulmonary toilet secondary to pain, resolved. 3. Hypertension. 4. Gould's esophagus. 5. Gastroesophageal reflux disease (GERD). 6. Ovarian cyst 4 x 6 cm. 7. Status post transient ischemic attack (TIA) in distant past. 8. Solitary pulmonary nodule. 9. Small pneumothorax right side. HOSPITAL COURSE: The patient is a 51-year-old white female who fell off her horse and hit the ground. She felt immediate pain and shortness of breath. She was brought to the emergency room where she was found to have multiple rib fractures and a very small pneumothorax. She was admitted to the hospital for pain control and an epidural catheter was placed with almost complete resolution of her pain. Pneumothorax was closely observed and was found to disappear over the next few days. The epidural was eventually weaned. Pain predictably returned and she was placed on oral analgesics including Percocet and eventually Duragesic patch. She was also noted to have a large ovarian cyst. I consulted Dr. Heribreto Gould to follow her as an outpatient. He saw her in the hospital just prior to discharge. She is being discharged today on her home medications which include vitamin C 500 mg every day, aspirin 81 mg every day, vitamin D 10,000 units every day, cyclobenzaprine 10 mg every day, diphenhydramine 25 mg as needed allergies, metoprolol 25 mg every day, and omeprazole 20 mg every day. Her new prescriptions include Duragesic patch of 25 mcg every 3 days and Percocet 5/325 every 4 hours as needed pain. She has been advised that should she feel excessively sleepy that she should remove the Duragesic patch. In addition, I suggest that she take Aleve 220 mg three times a day as needed pain. I will remove her from her ibuprofen. Her chest x-ray shows her lung fully expanded to the chest wall. Her rib fractures over the course of time became a little bit more displaced with increased breathing and chest excursion. There is no pneumothorax. Her discharge hemoglobin and hematocrit were 12.8 and 37.5 with a discharge white count of 5.2. Discharge electrolytes were normal with a BUN and creatinine of 14 and 0.77. I will see her back in the office in one week with a chest x-ray and hospitalization followup.
== END 2016-11-14 18:20 | disposition home or self-care (01) | DRG 861 ==
LOC: M ED 10:00 → M ED INP 14:34 → M PCU 16:37
PROVIDERS: ADMIT Thoracic Surgery (Cardiothoracic Vascular Surgery); ATTEND Thoracic Surgery (Cardiothoracic Vascular Surgery)
PROC: 3E0S3CZ (ICD-10-PCS; principal; 2016-11-09 14:54)
DX: G89.11 Acute pain due to trauma (principal); S27.0XXA Traumatic pneumothorax, initial encounter; K22.70 Barrett's esophagus without dysplasia; I10 Essential (primary) hypertension; R91.1 Solitary pulmonary nodule; K21.9 Gastro-esophageal reflux disease without esophagitis; N83.202 Unspecified ovarian cyst, left side; Z86.73 Personal history of transient ischemic attack (TIA), and cerebral infarction without residual deficits; W17.89XA Other fall from one level to another, initial encounter; Y92.009 Unspecified place in unspecified non-institutional (private) residence as the place of occurrence of the external cause; Z79.899 Other long term (current) drug therapy; Z79.82 Long term (current) use of aspirin; Z88.5 Allergy status to narcotic agent; Z80.41 Family history of malignant neoplasm of ovary; Z80.3 Family history of malignant neoplasm of breast; S22.41XA Multiple fractures of ribs, right side, initial encounter for closed fracture

== ENCOUNTER → 2016-11-28 | Outpatient (CLI) | payer BC ==
[~2016-11-28] MED LIST changes: +CYCL10TA PO; +DICL1GEL3; +FENT25PA TOP; +IBUP80TA PO; +METO1TAB32 PO; +OMEP20CA3 PO; +PERCOCET PO; +VITA1CAP14 PO
--- NOTE | 2016-11-28 09:33 | REP ---
Chest x-ray: Two views. History: Multiple rib fractures. Comparison chest x-ray November 14, 2016. Findings: There is a small zone of linear plate-like atelectasis in the left base. The left pleural angles are otherwise sharp. There is some persistent blunting of the right lateral pleural angle. Displaced right posterolateral rib fractures are again seen involving rib numbers 6, 7 and 8. No pneumothorax is seen. An azygos lobe is again noted unchanged. Mediastinum is not widened. Heart size is normal. Lung greenfield are otherwise clear. Impression: Some persistent pleural angle blunting on the right. Right-sided rib fractures. Plate-like atelectasis left base. Signed by Raghu Hernandez MD 11/28/2016 09:41 A
== END ==
LOC: M SMT 08:21
PROVIDERS: ATTEND Thoracic Surgery (Cardiothoracic Vascular Surgery)
DX: S22.41XB Multiple fractures of ribs, right side, initial encounter for open fracture (principal); X58.XXXA Exposure to other specified factors, initial encounter; Y92.89 Other specified places as the place of occurrence of the external cause; Y93.89 Activity, other specified; Y99.8 Other external cause status; R91.8 Other nonspecific abnormal finding of lung field

== ENCOUNTER → 2016-12-26 | Outpatient (CLI) | payer BC ==
--- NOTE | 2016-12-26 10:09 | REP ---
CHEST X-RAY: Two views. HISTORY: Traumatic pneumothorax. Comparison study November 28, 2016. FINDINGS: An azygos lobe is noted incidentally as before. There are displaced rib fractures on the right unchanged. There is no visible pneumothorax or hydrothorax on either side. Heart size is borderline unchanged. IMPRESSION: No pneumothorax visible. Signed by Raghu Hernandez MD 12/26/2016 01:17 P
== END ==
LOC: M SMT 08:23
PROVIDERS: ATTEND Thoracic Surgery (Cardiothoracic Vascular Surgery)
DX: S27.0XXA Traumatic pneumothorax, initial encounter (principal); X58.XXXA Exposure to other specified factors, initial encounter; Y92.89 Other specified places as the place of occurrence of the external cause; Y93.9 Activity, unspecified; Y99.9 Unspecified external cause status

== ENCOUNTER 2017-05-31 23:03 | Emergency (ER) | payer BC ==
[2017-06-01] MEDS: PERCOCET 5MG/325MG TAB PO (00:29)
[2017-06-01] MEDS: ONDANSETRON 4 MG ORAL DISINTEGRATING TAB (S0181) PO (01:27)
== END 2017-06-01 03:53 | disposition home or self-care (01) ==
LOC: M ED 23:03
DX: S82.832A Other fracture of upper and lower end of left fibula, initial encounter for closed fracture (principal); W10.9XXA Fall (on) (from) unspecified stairs and steps, initial encounter; Y92.018 Other place in single-family (private) house as the place of occurrence of the external cause
CPT/HCPCS: 73610

== ENCOUNTER → 2017-07-31 | Outpatient (CLI) | payer BC ==
[2017-07-31 11:32] LABS: HEMATOCRIT 40.8 % (36.0-47.0); HEMOGLOBIN 13.6 g/dl (12.0-15.5); MEAN CORPUSCULAR HEMOGLOBIN 31.3 pg (27.0-33.0); MEAN CORPUSCULAR HGB CONC 33.3 g/dl (32.0-36.5); PLATELET COUNT, AUTOMATED 258 10^3/uL (150-450); RED BLOOD COUNT 4.34 10^6/uL (4.00-5.40); RED CELL DISTRIBUTION WIDTH 12.4 % (11.5-14.5); WHITE BLOOD COUNT 5.9 10^3/uL (4.0-10.0)
[2017-07-31 11:35] LABS: APPEARANCE, URINE CLEAR (CLEAR); BACTERIA, URINE AUTO NEGATIVE (NEGATIVE); BILIRUBIN, URINE AUTO NEGATIVE (NEGATIVE); BLOOD, URINE BLOOD NEGATIVE (NEGATIVE); COLOR, URINE STRAW (YELLOW); GLUCOSE, URINE (UA) AUTO NEGATIVE (NEGATIVE); KETONE, URINE AUTO NEGATIVE (NEGATIVE); LEUKOCYTE ESTERASE, URINE AUTO NEGATIVE (NEGATIVE); NITRITE, URINE AUTO NEGATIVE (NEGATIVE); PROTEIN, URINE AUTO NEGATIVE (NEGATIVE); RBC, URINE AUTO 2 /HPF (0-3); SPECIFIC GRAVITY URINE AUTO 1.006 (1.002-1.035); SQUAMOUS EPITHELIAL CELL UR AU 0 /HPF (0-6); UROBILINOGEN, URINE AUTO 0.2 mg/dL (0.0-2.0); WBC, URINE AUTO 0 /HPF (0-3)
[2017-07-31 11:52] LABS: INR 0.93; PROTHROMBIN TIME 12.5 SECONDS (12.4-14.5)
[2017-07-31 12:52] LABS: ALBUMIN 4.1 GM/DL (3.2-5.2); ALBUMIN/GLOBULIN RATIO 1.37 (1.00-1.93); ALKALINE PHOSPHATASE 49 U/L (45-117); ALT/SGPT 26 U/L (12-78); ANION GAP 6 MEQ/L (8-16); AST/SGOT 15 U/L (7-37); BILIRUBIN,TOTAL 0.4 MG/DL (0.2-1.0); BLOOD UREA NITROGEN 13 MG/DL (7-18); CALCIUM LEVEL 8.8 MG/DL (8.5-10.1); CARBON DIOXIDE LEVEL 28 MEQ/L (21-32); CHLORIDE LEVEL 108 MEQ/L (98-107); CHOLESTEROL LEVEL 169 MG/DL (<200); CREATININE FOR GFR 0.77 MG/DL (0.55-1.30); GLOMERULAR FILTRATION RATE > 60.0 (>51); GLUCOSE, FASTING 89 MG/DL (70-100); HDL CHOLESTEROL 43 MG/DL (>40); LDL CHOLESTEROL 107.8 MG/DL (<100); NON-HDL-C 126 MG/DL; POTASSIUM SERUM 4.1 MEQ/L (3.5-5.1); SODIUM LEVEL 142 MEQ/L (136-145); TOTAL PROTEIN 7.1 GM/DL (6.4-8.2); TRIGLYCERIDES LEVEL 91 MG/DL (<150)
[2017-07-31 13:42] LABS: ESTIMATED AVERAGE GLUCOSE 94 MG/DL (60-110); HEMOGLOBIN A1c 4.9 %
[2017-07-31 14:09] LABS: TOTAL T3 105.8 NG/DL (60.0-181.0)
== END ==
LOC: M LAB 11:01
DX: Z01.818 Encounter for other preprocedural examination (principal); I10 Essential (primary) hypertension; R94.31 Abnormal electrocardiogram [ECG] [EKG]
CPT/HCPCS: 71046

== ENCOUNTER 2018-01-01 06:51 | Day surgery (SDC) | payer BC ==
[~2018-01-01 06:51] MED LIST changes: -ASPI1TAB PO; -CYCL10TA PO; -DICL1GEL3; -DIPH25CA PO; -FENT25PA TOP; -IBUP80TA PO; -METO1TAB32 PO; -METO25TA4 PO; +NS 1,000 ML IV; -OMEP20CA3 PO; -OMEP40CA2 PO; -PERCOCET PO; -PROBCAP4 PO; -VITA1CAP14 PO; -VITA1CAP7 PO; -VITA500T PO
[2018-01-01] MEDS ORDERED: PROPOFOL 200 MG/20 ML VIAL As Ordered (07:07)
[2018-01-01] MEDS ORDERED: fentaNYL 100 MCG/2 ML INJECTION (J3010) As Ordered (07:07)
[2018-01-01] MEDS ORDERED: LIDOCAINE 2% INJ 100 MG/5 ML SDV (FOR ANES.) As Ordered (07:07)
[2018-01-01] MEDS ORDERED: hydrALAZINE INJ 20 MG/ML VIAL As Ordered (08:07)
[2018-01-01] MEDS: ONDANSETRON 4MG/2ML VIAL (J2405) IV (08:50)
[2018-01-01] MEDS ORDERED: ONDANSETRON 4MG/2ML VIAL (J2405) As Ordered (08:51)
[2018-01-01] MEDS: METOCLOPRAMIDE INJ 10MG/2ML VIAL (J2765) IV (09:30)
[2018-01-01] MEDS ORDERED: METOCLOPRAMIDE INJ 10MG/2ML VIAL (J2765) As Ordered (09:30)
== END 2018-01-01 09:57 | disposition home or self-care (01) ==
LOC: M OPP 06:51
DX: K22.70 Barrett's esophagus without dysplasia (principal); K22.8 Other specified diseases of esophagus; K44.9 Diaphragmatic hernia without obstruction or gangrene; I10 Essential (primary) hypertension; K21.9 Gastro-esophageal reflux disease without esophagitis; R12 Heartburn; Z86.73 Personal history of transient ischemic attack (TIA), and cerebral infarction without residual deficits; Z88.5 Allergy status to narcotic agent; Z88.0 Allergy status to penicillin; Z79.82 Long term (current) use of aspirin; Z79.899 Other long term (current) drug therapy; Z80.3 Family history of malignant neoplasm of breast; Z80.41 Family history of malignant neoplasm of ovary
CPT/HCPCS: 43239

== ENCOUNTER → 2018-02-15 | Outpatient (CLI) | payer BC ==
[2018-02-15 08:44] LABS: HEMATOCRIT 41.4 % (36.0-47.0); HEMOGLOBIN 13.7 g/dl (12.0-15.5); MEAN CORPUSCULAR HEMOGLOBIN 30.8 pg (27.0-33.0); MEAN CORPUSCULAR HGB CONC 33.1 g/dl (32.0-36.5); PLATELET COUNT, AUTOMATED 246 10^3/uL (150-450); RED BLOOD COUNT 4.45 10^6/uL (4.00-5.40); RED CELL DISTRIBUTION WIDTH 12.4 % (11.5-14.5); WHITE BLOOD COUNT 5.4 10^3/uL (4.0-10.0)
[2018-02-15 09:23] LABS: ALBUMIN/GLOBULIN RATIO 1.21 (1.00-1.93); ALKALINE PHOSPHATASE 71 U/L (45-117); ALT/SGPT 26 U/L (12-78); ANION GAP 6 MEQ/L (8-16); AST/SGOT 15 U/L (7-37); BILIRUBIN,TOTAL 0.4 MG/DL (0.2-1.0); BLOOD UREA NITROGEN 15 MG/DL (7-18); CALCIUM LEVEL 9.1 MG/DL (8.5-10.1); CARBON DIOXIDE LEVEL 30 MEQ/L (21-32); CHLORIDE LEVEL 104 MEQ/L (98-107); CHOLESTEROL LEVEL 196 MG/DL (<200); CHOLESTEROL RISK RATIO 5.157 (<5); CREATININE FOR GFR 0.85 MG/DL (0.55-1.30); GLOMERULAR FILTRATION RATE > 60.0 (>51); GLUCOSE, FASTING 94 MG/DL (70-100); HDL CHOLESTEROL 38 MG/DL (>40); LDL CHOLESTEROL 123 MG/DL (<100); NON-HDL-C 158 MG/DL; SODIUM LEVEL 140 MEQ/L (136-145); TOTAL PROTEIN 7.3 GM/DL (6.4-8.2); TRIGLYCERIDES LEVEL 174 MG/DL (<150)
[2018-02-15 09:39] LABS: ESTIMATED AVERAGE GLUCOSE 108 MG/DL (60-110); HEMOGLOBIN A1c 5.4 %
[2018-02-15 10:53] LABS: TOTAL 25(OH) VITAMIN D 34.9 NG/ML (30.0-100.0)
== END ==
LOC: M LAB 08:14
DX: I10 Essential (primary) hypertension (principal); E03.9 Hypothyroidism, unspecified
CPT/HCPCS: 71046

== ENCOUNTER → 2019-08-28 | Outpatient (CLI) | payer BC ==
[~2019-08-28] MED LIST changes: +ASPI81TA26 PO; +CYCL-707 PO; +D-3-50003 PO; +DICL1GEL3; +DIPH25CA32 PO; +FENT25DI33 TOP; +IBUP80TA PO; +METO1TAB32 PO; +METO25TA4 PO; -NS 1,000 ML IV; +OMEP1CAP73 PO; +OMEP40CA97 PO; +PERCOCET PO; +PROBCAP4 PO; +VITA-243 PO; +VITA100067 PO; +VITA1CAP14 PO
== END ==
LOC: M LABSMTC 09:56
PROVIDERS: ATTEND Pediatrics
DX: Z03.818 Encounter for observation for suspected exposure to other biological agents ruled out (principal); Z11.59 Encounter for screening for other viral diseases

== ENCOUNTER → 2019-09-23 | Outpatient (REF) | payer BC ==
[2019-09-23 12:29] LABS: BLOOD UREA NITROGEN 21 MG/DL (7-18); CREATININE FOR GFR 0.69 MG/DL (0.55-1.30); GLOMERULAR FILTRATION RATE > 60.0 (>51)
== END ==
LOC: M LABDRAWC 11:36
PROVIDERS: ATTEND Obstetrics & Gynecology
DX: I10 Essential (primary) hypertension (principal)

== ENCOUNTER → 2019-09-30 | Outpatient (CLI) | payer BC ==
[2019-09-30 11:30] LABS: HEMATOCRIT 43.1 % (36.0-47.0); MEAN CORPUSCULAR HEMOGLOBIN 30.3 pg (27.0-33.0); MEAN CORPUSCULAR HGB CONC 32.5 g/dl (32.0-36.5); MEAN CORPUSCULAR VOLUME 93.3 fl (80.0-96.0); PLATELET COUNT, AUTOMATED 246 10^3/uL (150-450); RED BLOOD COUNT 4.62 10^6/uL (4.00-5.40); WHITE BLOOD COUNT 4.2 10^3/uL (4.0-10.0)
[2019-09-30 12:11] LABS: ALBUMIN 4.3 GM/DL (3.2-5.2); ALT/SGPT 42 U/L (12-78); BILIRUBIN,TOTAL 0.5 MG/DL (0.2-1.0); BLOOD UREA NITROGEN 17 MG/DL (7-18); CALCIUM LEVEL 9.3 MG/DL (8.5-10.1); CARBON DIOXIDE LEVEL 30 MEQ/L (21-32); CHLORIDE LEVEL 106 MEQ/L (98-107); CHOLESTEROL LEVEL 173 MG/DL (<200); CHOLESTEROL RISK RATIO 4.435 (<5); CREATININE FOR GFR 0.83 MG/DL (0.55-1.30); GLOMERULAR FILTRATION RATE > 60.0 (>51); GLUCOSE, FASTING 93 MG/DL (70-100); HDL CHOLESTEROL 39 MG/DL (>40); LDL CHOLESTEROL 120 MG/DL (<100); NON-HDL-C 134 MG/DL; POTASSIUM SERUM 3.9 MEQ/L (3.5-5.1); SODIUM LEVEL 142 MEQ/L (136-145); TOTAL PROTEIN 7.4 GM/DL (6.4-8.2); TRIGLYCERIDES LEVEL 70 MG/DL (<150)
[2019-09-30 13:13] LABS: TOTAL 25(OH) VITAMIN D 46.4 NG/ML (30.0-100.0)
--- NOTE | 2019-09-30 15:39 | REP ---
REASON: Hypertension and fatigue. COMPARISON: 02/15/2018, the latest prior. FINDINGS: The superior mediastinal structures are midline. The cardiac silhouette is unremarkable in size, shape, and position. The diaphragmatic surfaces of the lungs are regular, and the costophrenic angles are clear. The pulmonary greenfield are clear. The imaged osseous structures are intact. IMPRESSION: There is no acute cardiopulmonary disease. Old healed right 7th rib fracture, status quo. Electronically Signed by Kamron Dubois DO 09/30/2019 05:14 P
[2019-09-30 16:16] LABS: HEMOGLOBIN A1c 5.5 %
== END ==
LOC: M LAB 10:38
PROVIDERS: ATTEND Family Medicine
DX: R53.83 Other fatigue (principal); I10 Essential (primary) hypertension

== ENCOUNTER → 2020-03-30 | Outpatient (CLI) | payer BC ==
[2020-03-30 12:58] LABS: HEMATOCRIT 43.6 % (36.0-47.0); HEMOGLOBIN 14.4 g/dl (12.0-15.5); MEAN CORPUSCULAR HEMOGLOBIN 31.4 pg (27.0-33.0); PLATELET COUNT, AUTOMATED 286 10^3/uL (150-450); RED BLOOD COUNT 4.59 10^6/uL (4.00-5.40); WHITE BLOOD COUNT 4.6 10^3/uL (4.0-10.0)
[2020-03-30 15:15] LABS: ALBUMIN 4.3 GM/DL (3.2-5.2); ALT/SGPT 28 U/L (12-78); BILIRUBIN,TOTAL 0.6 MG/DL (0.2-1.0); BLOOD UREA NITROGEN 19 MG/DL (7-18); CALCIUM LEVEL 9.5 MG/DL (8.5-10.1); CARBON DIOXIDE LEVEL 30 MEQ/L (21-32); CHLORIDE LEVEL 104 MEQ/L (98-107); CHOLESTEROL LEVEL 194 MG/DL (<200); CHOLESTEROL RISK RATIO 4.619 (<5); CREATININE FOR GFR 0.88 MG/DL (0.55-1.30); GLOMERULAR FILTRATION RATE > 60.0 (>51); GLUCOSE, FASTING 88 MG/DL (70-100); HDL CHOLESTEROL 42 MG/DL (>40); LDL CHOLESTEROL 134 MG/DL (<100); NON-HDL-C 152 MG/DL; POTASSIUM SERUM 3.8 MEQ/L (3.5-5.1); SODIUM LEVEL 139 MEQ/L (136-145); TOTAL 25(OH) VITAMIN D 54.2 NG/ML (30.0-100.0); TOTAL PROTEIN 7.6 GM/DL (6.4-8.2); TRIGLYCERIDES LEVEL 88 MG/DL (<150)
[2020-03-30 15:57] LABS: HEMOGLOBIN A1c 5.1 %
== END ==
LOC: M LAB 11:44
PROVIDERS: ATTEND Family Medicine
DX: E03.9 Hypothyroidism, unspecified (principal); D64.9 Anemia, unspecified; R53.83 Other fatigue

== ENCOUNTER → 2020-06-01 | Outpatient (REF) | payer BC ==
[2020-06-01 17:41] LABS: APPEARANCE, URINE CLEAR (CLEAR); BACTERIA, URINE AUTO NEGATIVE (NEGATIVE); BILIRUBIN, URINE AUTO NEGATIVE (NEGATIVE); BLOOD, URINE BLOOD NEGATIVE (NEGATIVE); COLOR, URINE STRAW (YELLOW); GLUCOSE, URINE (UA) AUTO NEGATIVE (NEGATIVE); KETONE, URINE AUTO NEGATIVE (NEGATIVE); LEUKOCYTE ESTERASE, URINE AUTO NEGATIVE (NEGATIVE); NITRITE, URINE AUTO NEGATIVE (NEGATIVE); PROTEIN, URINE AUTO NEGATIVE (NEGATIVE); RBC, URINE AUTO 0 /HPF (0-3); SQUAMOUS EPITHELIAL CELL UR AU 0 /HPF (0-6); UROBILINOGEN, URINE AUTO 0.2 mg/dL (0.0-2.0); WBC, URINE AUTO 1 /HPF (0-3)
== END ==
LOC: M SMT 16:55
PROVIDERS: ATTEND Nurse Practitioner Family
DX: R35.0 Frequency of micturition (principal)

== ENCOUNTER → 2020-10-12 | Outpatient (CLI) | payer BC ==
[~2020-10-12] MED LIST changes: +OMEP40CA4 PO; -OMEP40CA97 PO
[2020-10-12 09:53] LABS: HEMATOCRIT 41.8 % (36.0-47.0); HEMOGLOBIN 13.8 g/dl (12.0-15.5); MEAN CORPUSCULAR HEMOGLOBIN 31.3 pg (27.0-33.0); MEAN CORPUSCULAR VOLUME 94.8 fl (80.0-96.0); PLATELET COUNT, AUTOMATED 233 10^3/uL (150-450); RED BLOOD COUNT 4.41 10^6/uL (4.00-5.40); WHITE BLOOD COUNT 4.4 10^3/uL (4.0-10.0)
[2020-10-12 10:47] LABS: HEMOGLOBIN A1c 5.2 %
[2020-10-12 10:56] LABS: ALT/SGPT 25 U/L (12-78); BILIRUBIN,TOTAL 0.9 MG/DL (0.2-1.0); BLOOD UREA NITROGEN 17 MG/DL (7-18); CALCIUM LEVEL 8.8 MG/DL (8.5-10.1); CARBON DIOXIDE LEVEL 29 MEQ/L (21-32); CHLORIDE LEVEL 110 MEQ/L (98-107); CHOLESTEROL LEVEL 180 MG/DL (<200); GLOMERULAR FILTRATION RATE > 60.0 (>51); GLUCOSE, FASTING 86 MG/DL (70-100); HDL CHOLESTEROL 45 MG/DL (>40); LDL CHOLESTEROL 124 MG/DL (<100); NON-HDL-C 135 MG/DL; POTASSIUM SERUM 4.1 MEQ/L (3.5-5.1); SODIUM LEVEL 144 MEQ/L (136-145); TOTAL 25(OH) VITAMIN D 49.1 NG/ML (30.0-100.0); TOTAL PROTEIN 6.7 GM/DL (6.4-8.2); TRIGLYCERIDES LEVEL 56 MG/DL (<150)
== END ==
LOC: M LAB 09:01
PROVIDERS: ATTEND Family Medicine
DX: E03.9 Hypothyroidism, unspecified (principal); I10 Essential (primary) hypertension; R53.83 Other fatigue

== ENCOUNTER 2020-12-04 08:07 | Inpatient (IN) | payer BC ==
[~2020-12-04] VITALS: Ht 172.7 cm; Wt 91.0 kg
[2020-12-04] MEDS ORDERED: IBUP80TA PO (08:20)
[2020-12-04] MEDS ORDERED: methylPREDNISolone 125MG 2ML VIAL IV ONE (08:35)
[2020-12-04] MEDS ORDERED: ALKATAB22 PO (08:50)
[2020-12-04] MEDS ORDERED: HOME MED LIST COMPLETE! XX SCH (08:50)
[2020-12-04] MEDS ORDERED: ACET500T15 PO (08:50)
[2020-12-04] MEDS: COMBIVENT RESPIMAT 100-20MCG INHALER 4GM INH SCH ×3 (08:56→09:42)
[2020-12-04 10:13] LABS: MEAN CORPUSCULAR HEMOGLOBIN 32.3 pg (27.0-33.0); MEAN CORPUSCULAR HGB CONC 35.1 g/dl (32.0-36.5); PLATELET COUNT, AUTOMATED 181 10^3/uL (150-450); RED BLOOD COUNT 4.02 10^6/uL (4.00-5.40); WHITE BLOOD COUNT 5.9 10^3/uL (4.0-10.0)
[2020-12-04 10:24] LABS: INR 0.94
[2020-12-04 10:25] LABS: PARTIAL THROMBOPLASTIN TIME 40.7 SECONDS (25.9-37.0)
[2020-12-04 10:27] LABS: D-DIMER QUANT 1005.51 ng/ml (<500)
[2020-12-04 10:41] LABS: ANISOCYTOSIS 1+; ATYPICAL LYMPH 2 % (0-5); LYMPHOCYTES 17 % (16-44); MONOCYTES 5 % (0-5); NEUTROPHILS 73 % (28-66); PLATELET ESTIMATE NORMAL (NORMAL)
[2020-12-04 11:18] LABS: BLOOD UREA NITROGEN 10 MG/DL (7-18); CREATININE FOR GFR 0.65 MG/DL (0.55-1.30); GLOMERULAR FILTRATION RATE > 60.0 (>51); GLUCOSE, FASTING 97 MG/DL (70-100)
[2020-12-04 11:19] LABS: CALCIUM LEVEL 8.2 MG/DL (8.5-10.1); CARBON DIOXIDE LEVEL 30 mmol/L (20-29); CHLORIDE LEVEL 106 MEQ/L (98-107); POTASSIUM SERUM 2.9 MEQ/L (3.5-5.1); SODIUM LEVEL 141 MEQ/L (136-145)
[2020-12-04 11:20] LABS: ALBUMIN 3.2 GM/DL (3.2-5.2); ALT/SGPT 29 IU/L (0-32); BILIRUBIN,TOTAL 0.4 MG/DL (0.2-1.0); CK-MB VALUE MASS < 1.0 NG/ML (<3.6); CPK CREATINE PHOSPHOKINASE 128 U/L (26-192); LDH LACTATE DEHYDROGENASE 368 U/L (84-246); MB/CK RELATIVE INDEX 0.78 (< OR =4); TOTAL PROTEIN 6.6 GM/DL (6.4-8.2)
[2020-12-04 11:21] LABS: FERRITIN 431 NG/ML (8-252); MAGNESIUM LEVEL 2.2 MG/DL (1.8-2.4); TROPONIN I < 0.02 NG/ML (< 0.10)
[2020-12-04] MEDS ORDERED: POTASSIUM CHLORIDE 10MEQ SR TABLET PO ONE (11:40)
[2020-12-04] MEDS ORDERED: KCL 10MEQ/100ML SWI (KRUN) 10 MEQ in IV 1 EA IV ONE ×9 (11:40→11:45)
[2020-12-04 12:26] LABS: NT-PRO BNP 139 PG/ML (<125)
[2020-12-04] MEDS ORDERED: COMBIVENT RESPIMAT 100-20MCG INHALER 4GM INH SCH (13:00)
[2020-12-04] MEDS ORDERED: ACETAMINOPHEN 500 MG TAB PO PRN (13:10)
[2020-12-04] MEDS ORDERED: ALBUTEROL 90 MCG/ACT 8GM HFA INHALER INH ONE (14:00)
[2020-12-04] MEDS ORDERED: ALBUTEROL 90 MCG/ACT 8GM HFA INHALER INH PRN (14:05)
[2020-12-04 15:00] VITALS: O2SAT 94
[2020-12-04] MEDS ORDERED: POTASSIUM CHL PWD 20 MEQ PACKET PO ONE ×2 (15:10→21:00)
[2020-12-04] MEDS ORDERED: SODIUM CHLORIDE 0.9% INJ 10 ML SYR IV ONE ×2 (15:15→19:00)
[2020-12-04] MEDS: ASPIRIN 81MG ENTERIC TABLET PO SCH (15:38)
[2020-12-04] MEDS: KCL 10MEQ/100ML SWI (KRUN) 10 MEQ in IV 1 EA IV SCH ×2 (15:38→15:39)
[2020-12-04] MEDS: ENOXAPARIN 40MG/0.4ML SYRINGE (J1650 PER 10MG) SC SCH (15:38)
[2020-12-04 15:45] VITALS: BP 137/83
[2020-12-04 16:17] LABS: INR 0.92; PROTHROMBIN TIME 12.7 SECONDS (12.7-14.5)
[2020-12-04 16:18] LABS: PARTIAL THROMBOPLASTIN TIME 40.5 SECONDS (25.9-37.0)
[2020-12-04 16:20] LABS: D-DIMER QUANT 1040.87 ng/ml (<500)
[2020-12-04 16:31] LABS: ALBUMIN 3.1 GM/DL (3.2-5.2); ALT/SGPT 28 U/L (12-78); BILIRUBIN,DIRECT 0.1 MG/DL (0.0-0.2); BILIRUBIN,TOTAL 0.4 MG/DL (0.2-1.0); CPK CREATINE PHOSPHOKINASE 121 U/L (26-192); FERRITIN 466 NG/ML (8-252); LDH LACTATE DEHYDROGENASE 401 U/L (84-246); TOTAL PROTEIN 6.6 GM/DL (6.4-8.2); TROPONIN I < 0.02 NG/ML (< 0.10)
[2020-12-04 16:35] LABS: BLOOD UREA NITROGEN 9 MG/DL (7-18); CALCIUM LEVEL 8.3 MG/DL (8.5-10.1); CARBON DIOXIDE LEVEL 28 MEQ/L (21-32); CHLORIDE LEVEL 106 MEQ/L (98-107); CREATININE FOR GFR 0.63 MG/DL (0.55-1.30); GLOMERULAR FILTRATION RATE > 60.0 (>51); GLUCOSE, FASTING 165 MG/DL (70-100); POTASSIUM SERUM 3.5 MEQ/L (3.5-5.1); SODIUM LEVEL 143 MEQ/L (136-145)
[2020-12-04 16:36] LABS: CK-MB VALUE MASS 1.2 NG/ML (<3.6); CPK CREATINE PHOSPHOKINASE 139 U/L (26-192); MB/CK RELATIVE INDEX 0.86 (< OR =4); TROPONIN I < 0.02 NG/ML (< 0.10)
[2020-12-04] MEDS ORDERED: REMDESIVIR 200 MG in NS 250 ML IV ONE (17:00)
[2020-12-04 20:00] VITALS: BP 126/74; O2SAT 92
[2020-12-04 20:23] LABS: BLOOD UREA NITROGEN 13 MG/DL (7-18); CALCIUM LEVEL 8.2 MG/DL (8.5-10.1); CARBON DIOXIDE LEVEL 27 MEQ/L (21-32); CHLORIDE LEVEL 109 MEQ/L (98-107); CREATININE FOR GFR 0.67 MG/DL (0.55-1.30); GLOMERULAR FILTRATION RATE > 60.0 (>51); GLUCOSE, FASTING 175 MG/DL (70-100); POTASSIUM SERUM 3.6 MEQ/L (3.5-5.1); SODIUM LEVEL 144 MEQ/L (136-145)
[2020-12-04] MEDS: BENZONATATE 100MG CAPSULE PO PRN (20:32)
[2020-12-05] VITALS (11 sets, daily range): BP systolic 130–140; BP diastolic 79–91; O2SAT 88–94
[2020-12-05] MEDS: BENZONATATE 100MG CAPSULE PO PRN ×2 (05:07→19:03)
[2020-12-05] MEDS: COMBIVENT RESPIMAT 100-20MCG INHALER 4GM INH SCH ×2 (07:41→18:15)
[2020-12-05 08:07] LABS: HEMATOCRIT 36.6 % (36.0-47.0); HEMOGLOBIN 12.1 g/dl (12.0-15.5); MEAN CORPUSCULAR HEMOGLOBIN 30.8 pg (27.0-33.0); MEAN CORPUSCULAR HGB CONC 33.1 g/dl (32.0-36.5); MEAN CORPUSCULAR VOLUME 93.1 fl (80.0-96.0); PLATELET COUNT, AUTOMATED 231 10^3/uL (150-450); RED BLOOD COUNT 3.93 10^6/uL (4.00-5.40); WHITE BLOOD COUNT 7.4 10^3/uL (4.0-10.0)
[2020-12-05 08:27] LABS: BLOOD UREA NITROGEN 11 MG/DL (7-18); CALCIUM LEVEL 8.5 MG/DL (8.5-10.1); CARBON DIOXIDE LEVEL 28 MEQ/L (21-32); CHLORIDE LEVEL 110 MEQ/L (98-107); CREATININE FOR GFR 0.52 MG/DL (0.55-1.30); GLOMERULAR FILTRATION RATE > 60.0 (>51); GLUCOSE, FASTING 90 MG/DL (70-100); MAGNESIUM LEVEL 2.3 MG/DL (1.8-2.4); POTASSIUM SERUM 3.6 MEQ/L (3.5-5.1); SODIUM LEVEL 143 MEQ/L (136-145)
[2020-12-05 08:53] LABS: ATYPICAL LYMPH 1 % (0-5); LYMPHOCYTES 25 % (16-44); MONOCYTES 3 % (0-5); NEUTROPHILS 67 % (28-66); PLASMA CELL 1 % (0-0)
[2020-12-05 08:58] LABS: PLATELET ESTIMATE NORMAL (NORMAL); SCHISTOCYTES 1+
[2020-12-05] MEDS: ASPIRIN 81MG ENTERIC TABLET PO SCH (10:10)
[2020-12-05] MEDS: dexameTHASONE 4 MG/ML 1ML VIAL (J1100 PER 1MG) IV SCH (10:10)
[2020-12-05] MEDS: ENOXAPARIN 40MG/0.4ML SYRINGE (J1650 PER 10MG) SC SCH (10:11)
[2020-12-05] MEDS ORDERED: SODIUM CHLORIDE 0.9% INJ 10 ML SYR IV SCH ×2 (14:15→18:00)
[2020-12-05] MEDS ORDERED: REMDESIVIR 100 MG in NS 250 ML IV SCH ×4 (17:00)
[2020-12-06] VITALS: O2SAT 92
[2020-12-06] MEDS: BENZONATATE 100MG CAPSULE PO PRN (02:19)
[2020-12-06 04:16] VITALS: O2SAT 96
[2020-12-06 07:09] VITALS: BP 137/95
[2020-12-06 07:41] LABS: HEMATOCRIT 37.1 % (36.0-47.0); HEMOGLOBIN 12.3 g/dl (12.0-15.5); MEAN CORPUSCULAR HEMOGLOBIN 30.9 pg (27.0-33.0); MEAN CORPUSCULAR HGB CONC 33.2 g/dl (32.0-36.5); MEAN CORPUSCULAR VOLUME 93.2 fl (80.0-96.0); PLATELET COUNT, AUTOMATED 286 10^3/uL (150-450); RED BLOOD COUNT 3.98 10^6/uL (4.00-5.40); WHITE BLOOD COUNT 5.8 10^3/uL (4.0-10.0)
[2020-12-06 07:57] LABS: INR 0.91; PARTIAL THROMBOPLASTIN TIME 31.8 SECONDS (25.9-37.0); PROTHROMBIN TIME 12.7 SECONDS (12.7-14.5)
[2020-12-06 08:00] VITALS: O2SAT 95
[2020-12-06] MEDS: ASPIRIN 81MG ENTERIC TABLET PO SCH (08:18)
[2020-12-06] MEDS: dexameTHASONE 4 MG/ML 1ML VIAL (J1100 PER 1MG) IV SCH (08:19)
[2020-12-06] MEDS: ENOXAPARIN 40MG/0.4ML SYRINGE (J1650 PER 10MG) SC SCH (08:19)
[2020-12-06 08:23] LABS: ALBUMIN 2.8 GM/DL (3.2-5.2); ALT/SGPT 35 U/L (12-78); BILIRUBIN,DIRECT 0.1 MG/DL (0.0-0.2); BILIRUBIN,TOTAL 0.4 MG/DL (0.2-1.0); BLOOD UREA NITROGEN 14 MG/DL (7-18); CALCIUM LEVEL 8.4 MG/DL (8.5-10.1); CARBON DIOXIDE LEVEL 26 MEQ/L (21-32); CHLORIDE LEVEL 107 MEQ/L (98-107); CPK CREATINE PHOSPHOKINASE 104 U/L (26-192); CREATININE FOR GFR 0.55 MG/DL (0.55-1.30); FERRITIN 505 NG/ML (8-252); GLOMERULAR FILTRATION RATE > 60.0 (>51); GLUCOSE, FASTING 92 MG/DL (70-100); HCG, SERUM QUANTITATIVE 3 MIU/ML; LDH LACTATE DEHYDROGENASE 367 U/L (84-246); MAGNESIUM LEVEL 2.4 MG/DL (1.8-2.4); NT-PRO BNP 308 PG/ML (<125); POTASSIUM SERUM 3.6 MEQ/L (3.5-5.1); SODIUM LEVEL 142 MEQ/L (136-145); TOTAL PROTEIN 6.5 GM/DL (6.4-8.2); TROPONIN I < 0.02 NG/ML (< 0.10)
[2020-12-06 08:24] LABS: ATYPICAL LYMPH 1 % (0-5); LYMPHOCYTES 20 % (16-44); METAMYELOCYTES 2 % (0-0); MONOCYTES 5 % (0-5); NEUTROPHILS 71 % (28-66); PLASMA CELL 1 % (0-0)
[2020-12-06 08:26] LABS: PLATELET CLUMPS SMALL AMT; PLATELET ESTIMATE NORMAL (NORMAL); SMUDGE CELLS 1+
[2020-12-06] MEDS: COMBIVENT RESPIMAT 100-20MCG INHALER 4GM INH SCH (11:20)
[2020-12-06] MEDS ORDERED: BENZ-18 PO (12:59)
[2020-12-06] MEDS ORDERED: PRED10TA2 PO (12:59)
[2020-12-06] MEDS ORDERED: ASPI81TA26 PO (14:09)
[2020-12-06] MEDS ORDERED: POTA-151 PO (14:48)
[2020-12-06] MEDS ORDERED: FURO20TA2 PO (14:50)
[2020-12-06] MEDS ORDERED: COMBAER6 INH (14:55)
[2020-12-07 14:12] LABS: MYCOPLASMA PNEUMONIAE IgG <100 U/mL (0-99); MYCOPLASMA PNEUMONIAE IgM <770 U/mL (0-769)
[2020-12-08 21:07] LABS: BODY FLUID CULTURE Not indicated. (.); LEGIONELLA ANTIGEN URINE Negative (Negative); ORGANISM ID Not indicated. (.); SPECIMEN SOURCE Urine (.); URINE STREP PNEUMONIAE ANTIGEN Negative (Negative)
== END 2020-12-06 16:55 | disposition home health service (06) | DRG 137 ==
LOC: M ED 08:07 → M ED INP 13:55 → ENRESERV 14:10 → M 4MAIN 14:40
PROVIDERS: ADMIT Internal Medicine; ATTEND Family Medicine
DX: U07.1 COVID-19 (principal); J12.82 Pneumonia due to coronavirus disease 2019; E87.6 Hypokalemia; Z88.0 Allergy status to penicillin; Z88.5 Allergy status to narcotic agent; Z86.73 Personal history of transient ischemic attack (TIA), and cerebral infarction without residual deficits; I10 Essential (primary) hypertension; K21.9 Gastro-esophageal reflux disease without esophagitis; K22.70 Barrett's esophagus without dysplasia; R19.7 Diarrhea, unspecified

== ENCOUNTER → 2020-12-14 | Outpatient (CLI) | payer BC ==
[~2020-12-14] MED LIST changes: +ACET500T15 PO; +ALKATAB22 PO; +BENZ-18 PO; +COMBAER6 INH; +FURO20TA2 PO; +POTA20TA6 PO; +PRED10TA2 PO
[2020-12-14 12:12] LABS: HEMATOCRIT 40.6 % (36.0-47.0); HEMOGLOBIN 13.4 g/dl (12.0-15.5); MEAN CORPUSCULAR HEMOGLOBIN 31.1 pg (27.0-33.0); MEAN CORPUSCULAR VOLUME 94.2 fl (80.0-96.0); PLATELET COUNT, AUTOMATED 441 10^3/uL (150-450); RED BLOOD COUNT 4.31 10^6/uL (4.00-5.40); WHITE BLOOD COUNT 12.1 10^3/uL (4.0-10.0)
--- NOTE | 2020-12-14 12:25 | REP ---
INDICATION: PNEUMONIA,ANEMIA LABS AND EKG BEFORE. COMPARISON: Comparison chest x-ray December 04, 2020. TECHNIQUE: Two views.. FINDINGS: An azygous lobe is noted. Multiple right-sided old rib fractures are seen. There is a linear density in the left perihilar region consistent with platelike atelectasis. Lung greenfield are otherwise clear. The pleural angles are sharp. Heart size is normal. Pulmonary vasculature is not increased. No acute bony abnormality. IMPRESSION: Linear platelike atelectasis left perihilar region. Otherwise no active disease. Lung greenfield are improved from the 12/04/2020 study <Electronically signed by Aly Hernandez > 12/14/20 1221
[2020-12-14 12:52] LABS: ALBUMIN 3.3 GM/DL (3.2-5.2); ALT/SGPT 39 U/L (12-78); BILIRUBIN,TOTAL 0.5 MG/DL (0.2-1.0); BLOOD UREA NITROGEN 18 MG/DL (7-18); CALCIUM LEVEL 9.1 MG/DL (8.5-10.1); CARBON DIOXIDE LEVEL 29 MEQ/L (21-32); CHLORIDE LEVEL 104 MEQ/L (98-107); GLOMERULAR FILTRATION RATE > 60.0 (>51); GLUCOSE, FASTING 94 MG/DL (70-100); POTASSIUM SERUM 4.6 MEQ/L (3.5-5.1); SODIUM LEVEL 139 MEQ/L (136-145); TOTAL PROTEIN 6.6 GM/DL (6.4-8.2)
--- NOTE | 2020-12-14 21:22 | ECGEPIP ---
[facility] Test Date: 2020-12-14 Pat Name: DARRELL CARDENAS Department: Room: - Gender: Female Correctional Cook: corinne : 1965 Requested By: Meaghan Jaeger Order Number: [id number] Reading MD: Jorge Valentin Measurements Intervals [place] Rate: 66 P: 52 FL: 136 QRS: -8 QRSD: 84 T: 10 QT: 386 QTc: 404 Interpretive Statements Normal sinus rhythm Minimal voltage criteria for LVH, may be normal variant (R in aVL) rSr' in V1 & V2 (possible RV conduction delay) Improved repolarization compared with 12/04/2020. Electronically Signed on 12-14-2020 21:21:57 EDT by Jorge Valentin
== END ==
LOC: M LAB 11:23
PROVIDERS: ATTEND Family Medicine
DX: J18.9 Pneumonia, unspecified organism (principal); D64.9 Anemia, unspecified; R53.83 Other fatigue

== ENCOUNTER → 2021-03-10 | Outpatient (CLI) | payer BC ==
[2021-03-10 08:47] LABS: HEMATOCRIT 41.3 % (36.0-47.0); HEMOGLOBIN 13.9 g/dl (12.0-15.5); MEAN CORPUSCULAR HEMOGLOBIN 31.6 pg (27.0-33.0); MEAN CORPUSCULAR HGB CONC 33.7 g/dl (32.0-36.5); MEAN CORPUSCULAR VOLUME 93.9 fl (80.0-96.0); PLATELET COUNT, AUTOMATED 241 10^3/uL (150-450); WHITE BLOOD COUNT 4.8 10^3/uL (4.0-10.0)
[2021-03-10 09:14] LABS: ALT/SGPT 21 U/L (12-78); BILIRUBIN,TOTAL 0.4 MG/DL (0.2-1.0); BLOOD UREA NITROGEN 22 MG/DL (7-18); CALCIUM LEVEL 9.1 MG/DL (8.5-10.1); CARBON DIOXIDE LEVEL 28 MEQ/L (21-32); CHLORIDE LEVEL 110 MEQ/L (98-107); CHOLESTEROL LEVEL 180 MG/DL (<200); CHOLESTEROL RISK RATIO 4.186 (<5); CREATININE FOR GFR 0.74 MG/DL (0.55-1.30); GLOMERULAR FILTRATION RATE > 60.0 (>51); GLUCOSE, FASTING 93 MG/DL (70-100); HDL CHOLESTEROL 43 MG/DL (>40); IRON (FE) 64 UG/DL (50-170); LDL CHOLESTEROL 122 MG/DL (<100); NON-HDL-C 137 MG/DL; PERCENT SATURATION 18.9 % (13.2-45.0); POTASSIUM SERUM 4.2 MEQ/L (3.5-5.1); SODIUM LEVEL 142 MEQ/L (136-145); THYROXINE (T4) 9.2 UG/DL (4.5-12.0); TOTAL IRON BINDING CAPACITY 338 UG/DL (250-450); TOTAL PROTEIN 7.1 GM/DL (6.4-8.2); TRIGLYCERIDES LEVEL 73 MG/DL (<150)
[2021-03-10 09:17] LABS: TOTAL 25(OH) VITAMIN D 32.7 NG/ML (30.0-100.0); TOTAL T3 94.8 NG/DL (60.0-181.0)
[2021-03-10 09:18] LABS: VITAMIN B12 LEVEL 454 PG/ML (247-911)
[2021-03-10 09:21] LABS: HEMOGLOBIN A1c 5.1 %
== END ==
LOC: M LAB 07:51
PROVIDERS: ATTEND Family Medicine
DX: D64.9 Anemia, unspecified (principal); R53.83 Other fatigue; E03.9 Hypothyroidism, unspecified

== ENCOUNTER → 2021-06-06 | Outpatient (CLI) | payer BC ==
[~2021-06-06] MED LIST changes: +POTA-151 PO; -POTA20TA6 PO
== END ==
LOC: M SLEEP 20:00
PROVIDERS: ATTEND Nurse Practitioner Adult Health
DX: G47.30 Sleep apnea, unspecified (principal)

== ENCOUNTER 2021-08-02 09:57 | Day surgery (SDC) | payer BC ==
[~2021-08-02] VITALS: Ht 175.3 cm; Wt 84.3 kg
[~2021-08-02 09:57] MED LIST changes: +AMLO25TA PO; +CVS5000S2 PO; +D-50CAP PO; +HYDR12.55 PO; +IBUP-1114 PO; +LIDOCAINE 2% 100MG/5ML SDV (FOR ANES.) As Ordered ONE; +NS 1,000 ML IV ONE; +OMEP10CASR PO; +VITA100024 PO; +ZINC1TAB2 PO; +fentaNYL 100 MCG/2 ML INJECTION As Ordered ONE; +propofoL 500 MG/50 ML VIAL As Ordered ONE
[2021-08-02 12:20] VITALS: BP 107/63
== END 2021-08-02 12:15 | disposition home or self-care (01) ==
LOC: M OPP 09:57
PROVIDERS: ATTEND Internal Medicine Gastroenterology
DX: Z12.11 Encounter for screening for malignant neoplasm of colon (principal); Z83.71 Family history of colonic polyps; D12.0 Benign neoplasm of cecum; K64.0 First degree hemorrhoids; K29.70 Gastritis, unspecified, without bleeding; K44.9 Diaphragmatic hernia without obstruction or gangrene; R12 Heartburn; Z79.1 Long term (current) use of non-steroidal anti-inflammatories (NSAID); Z79.899 Other long term (current) drug therapy; Z88.0 Allergy status to penicillin; Z88.5 Allergy status to narcotic agent; Z87.19 Personal history of other diseases of the digestive system; Z86.73 Personal history of transient ischemic attack (TIA), and cerebral infarction without residual deficits
CPT/HCPCS: 43239; 45380; 88305; J3010

== ENCOUNTER → 2022-06-01 | Outpatient (REF) | payer BC ==
[~2022-06-01] MED LIST changes: +DIPH-435 PO; -DIPH25CA32 PO; -LIDOCAINE 2% 100MG/5ML SDV (FOR ANES.) As Ordered ONE; -NS 1,000 ML IV ONE; -fentaNYL 100 MCG/2 ML INJECTION As Ordered ONE; -propofoL 500 MG/50 ML VIAL As Ordered ONE
== END ==
LOC: M WUC 12:13
PROVIDERS: ATTEND Physician Assistant
DX: R30.0 Dysuria (principal)

== ENCOUNTER → 2022-10-18 | Outpatient (CLI) | payer BC ==
[~2022-10-18] MED LIST changes: +DICL100G10; -DICL1GEL3
[2022-10-18 08:20] LABS: HEMATOCRIT 42.3 % (36.0-47.0); HEMOGLOBIN 13.7 g/dl (12.0-15.5); MEAN CORPUSCULAR HEMOGLOBIN 31.4 pg (27.0-33.0); MEAN CORPUSCULAR HGB CONC 32.4 g/dl (32.0-36.5); MEAN CORPUSCULAR VOLUME 96.8 fl (80.0-96.0); PLATELET COUNT, AUTOMATED 220 10^3/uL (150-450); RED BLOOD COUNT 4.37 10^6/uL (4.00-5.40); WHITE BLOOD COUNT 4.8 10^3/uL (4.0-10.0)
[2022-10-18 08:46] LABS: IRON (FE) 81 UG/DL (50-170); PERCENT SATURATION 25.7 % (13.2-45.0); TOTAL IRON BINDING CAPACITY 315 UG/DL (250-425)
[2022-10-18 09:01] LABS: ALBUMIN 4.3 G/DL (3.2-5.2); ALKALINE PHOSPHATASE 65 U/L (46-116); ALT/SGPT 22 U/L (7.0-40); AST/SGOT 15 U/L (<34); BILIRUBIN,TOTAL 0.6 MG/DL (0.3-1.2); BLOOD UREA NITROGEN 15 MG/DL (9-23); CALCIUM LEVEL 9.2 MG/DL (8.5-10.1); CARBON DIOXIDE LEVEL 32 MMOL/L (20-31); CHLORIDE LEVEL 104 MMOL/L (98-107); CHOLESTEROL LEVEL 161 MG/DL (<200); CHOLESTEROL RISK RATIO 2.82 (<5); CREATININE FOR GFR 0.66 MG/DL (0.55-1.30); ESTRADIOL < 19.0 PG/ML; FOLLICLE STIMULATING HORMONE 78.4 mIU/ML; FREE T3 3.3 PG/ML (2.3-4.2); FREE T4 0.96 NG/DL (0.89-1.76); GLOMERULAR FILTRATION RATE > 60.0 (>51); GLUCOSE, FASTING 84 MG/DL (60-100); LDL CHOLESTEROL 90.2 MG/DL (<100); LUTEINIZING HORMONE 41.1 mIU/ML; POTASSIUM SERUM 3.5 MMOL/L (3.5-5.1); SODIUM LEVEL 143 MMOL/L (136-145); THYROID STIMULATING HORMONE 2.317 uIU/ML (0.55-4.78); TOTAL 25(OH) VITAMIN D 68.1 NG/ML (20.0-100.0); TOTAL PROTEIN 6.9 G/DL (5.7-8.2); TRIGLYCERIDES LEVEL 69 MG/DL (<150)
== END ==
LOC: M RAD 07:40
PROVIDERS: ATTEND Family Medicine
DX: I10 Essential (primary) hypertension (principal); E03.9 Hypothyroidism, unspecified; R53.83 Other fatigue

== ENCOUNTER → 2023-04-03 | Outpatient (CLI) | payer BC ==
[2023-04-03 09:23] LABS: HEMATOCRIT 42.1 % (36.0-47.0); HEMOGLOBIN 14.3 g/dl (12.0-15.5); MEAN CORPUSCULAR HEMOGLOBIN 32.3 pg (27.0-33.0); PLATELET COUNT, AUTOMATED 255 10^3/uL (150-450); RED BLOOD COUNT 4.43 10^6/uL (4.00-5.40); WHITE BLOOD COUNT 4.4 10^3/uL (4.0-10.0)
[2023-04-03 09:34] LABS: ERYTHROCYTE SEDIMENTATION RATE 10 mm/hr (0-30)
[2023-04-03 09:40] LABS: ALKALINE PHOSPHATASE 62 U/L (46-116); ALT/SGPT 19 U/L (7.0-40); AST/SGOT 13 U/L (<34); BILIRUBIN,TOTAL 0.4 MG/DL (0.3-1.2); BLOOD UREA NITROGEN 13 MG/DL (9-23); CALCIUM LEVEL 9.4 MG/DL (8.5-10.1); CARBON DIOXIDE LEVEL 32 MMOL/L (20-31); CHLORIDE LEVEL 104 MMOL/L (98-107); CHOLESTEROL LEVEL 173 MG/DL (<200); CHOLESTEROL RISK RATIO 3.08 (<5); CREATININE FOR GFR 0.75 MG/DL (0.55-1.30); GLOMERULAR FILTRATION RATE > 60.0 (>51); GLUCOSE, FASTING 90 MG/DL (60-100); IRON (FE) 72 UG/DL (50-170); LDL CHOLESTEROL 102.6 MG/DL (<100); PERCENT SATURATION 22.9 % (13.2-45.0); POTASSIUM SERUM 3.8 MMOL/L (3.5-5.1); SODIUM LEVEL 139 MMOL/L (136-145); TOTAL IRON BINDING CAPACITY 315 UG/DL (250-425); TOTAL PROTEIN 6.8 G/DL (5.7-8.2); TRIGLYCERIDES LEVEL 72 MG/DL (<150)
[2023-04-03 09:41] LABS: FREE T4 1.07 NG/DL (0.89-1.76)
[2023-04-03 09:42] LABS: THYROID STIMULATING HORMONE 3.636 uIU/ML (0.55-4.78); TOTAL T3 115.6 NG/DL (60.0-181.0)
[2023-04-03 09:46] LABS: MONO SCRN NEGATIVE (NEGATIVE)
== END ==
LOC: M RAD 08:31
PROVIDERS: ATTEND Family Medicine
DX: D64.9 Anemia, unspecified (principal); R53.83 Other fatigue; E03.9 Hypothyroidism, unspecified

== ENCOUNTER → 2023-08-23 | Outpatient (CLI) | payer BC | LOC: M LAB 08:24 | PROVIDERS: ATTEND Family Medicine | DX: M10.9 Gout, unspecified (principal) ==

== ENCOUNTER → 2023-10-11 | Outpatient (REF) | payer BC | LOC: M LAB REF 09:58 | PROVIDERS: ATTEND Physician Assistant | DX: R30.0 Dysuria (principal) ==

== ENCOUNTER → 2023-12-04 | Outpatient (CLI) | payer BC ==
[2023-12-04 08:50] LABS: HEMOGLOBIN 14.4 g/dl (12.0-15.5); MEAN CORPUSCULAR HEMOGLOBIN 32.1 pg (27.0-33.0); MEAN CORPUSCULAR HGB CONC 33.5 g/dl (32.0-36.5); MEAN CORPUSCULAR VOLUME 95.8 fl (80.0-96.0); PLATELET COUNT, AUTOMATED 240 10^3/uL (150-450); RED BLOOD COUNT 4.49 10^6/uL (4.00-5.40); WHITE BLOOD COUNT 4.7 10^3/uL (4.0-10.0)
[2023-12-04 09:23] LABS: ALBUMIN 4.2 G/DL (3.2-5.2); ALKALINE PHOSPHATASE 62 U/L (46-116); ALT/SGPT 22 U/L (7.0-40); AST/SGOT 13 U/L (<34); BILIRUBIN,TOTAL 0.6 MG/DL (0.3-1.2); BLOOD UREA NITROGEN 15 MG/DL (9-23); CALCIUM LEVEL 9.6 MG/DL (8.5-10.1); CARBON DIOXIDE LEVEL 31 MMOL/L (20-31); CHLORIDE LEVEL 105 MMOL/L (98-107); CHOLESTEROL LEVEL 193 MG/DL (<200); CHOLESTEROL RISK RATIO 3.94 (<5); GLOMERULAR FILTRATION RATE > 60.0 (>51); GLUCOSE, FASTING 91 MG/DL (60-100); HDL CHOLESTEROL 48.9 MG/DL (>40); IRON (FE) 84 UG/DL (50-170); LDL CHOLESTEROL 131.3 MG/DL (<100); NON-HDL-C 144.1 MG/DL; PERCENT SATURATION 26.8 % (13.2-45.0); POTASSIUM SERUM 4.5 MMOL/L (3.5-5.1); SODIUM LEVEL 141 MMOL/L (136-145); TOTAL IRON BINDING CAPACITY 313 UG/DL (250-425); TOTAL PROTEIN 7.1 G/DL (5.7-8.2); TRIGLYCERIDES LEVEL 64 MG/DL (<150)
[2023-12-04 09:24] LABS: THYROID STIMULATING HORMONE 2.846 uIU/ML (0.55-4.78)
[2023-12-04 09:25] LABS: VITAMIN B12 LEVEL 758 PG/ML (211-911)
[2023-12-04 10:25] LABS: HEMOGLOBIN A1c 4.9 % (4.0-6.0)
== END ==
LOC: M LAB 07:40
PROVIDERS: ATTEND Family Medicine
DX: R53.83 Other fatigue (principal); I10 Essential (primary) hypertension; E03.9 Hypothyroidism, unspecified

== ENCOUNTER → 2023-12-25 | Outpatient (CLI) | payer BC | LOC: M RAD 09:42 | PROVIDERS: ATTEND Internal Medicine Cardiovascular Disease | DX: Z82.49 Family history of ischemic heart disease and other diseases of the circulatory system (principal) ==

== ENCOUNTER → 2024-06-22 | Outpatient (CLI) | payer BC ==
[2024-06-22 09:23] LABS: HEMATOCRIT 41.5 % (36.0-47.0); MEAN CORPUSCULAR HEMOGLOBIN 31.5 pg (27.0-33.0); MEAN CORPUSCULAR HGB CONC 33.7 g/dl (32.0-36.5); MEAN CORPUSCULAR VOLUME 93.5 fl (80.0-96.0); PLATELET COUNT, AUTOMATED 252 10^3/uL (150-450); RED BLOOD COUNT 4.44 10^6/uL (4.00-5.40); WHITE BLOOD COUNT 4.3 10^3/uL (4.0-10.0)
[2024-06-22 09:39] LABS: HEMOGLOBIN A1c 4.6 % (4.0-6.0)
[2024-06-22 09:46] LABS: ALKALINE PHOSPHATASE 58 U/L (35-104); ALT/SGPT 26 U/L (7.0-40); AST/SGOT 18 U/L (<34); BILIRUBIN,TOTAL 0.4 MG/DL (0.3-1.2); BLOOD UREA NITROGEN 20 MG/DL (9-23); CALCIUM LEVEL 9.4 MG/DL (8.5-10.1); CARBON DIOXIDE LEVEL 31 MMOL/L (20-31); CHLORIDE LEVEL 109 MMOL/L (98-107); CHOLESTEROL LEVEL 186 MG/DL (<200); CHOLESTEROL RISK RATIO 3.69 (<5); CREATININE FOR GFR 0.72 MG/DL (0.55-1.30); GLOMERULAR FILTRATION RATE > 60.0 (>51); GLUCOSE, FASTING 88 MG/DL (60-100); HDL CHOLESTEROL 50.3 MG/DL (>40); LDL CHOLESTEROL 120.9 MG/DL (<100); NON-HDL-C 135.7 MG/DL; SODIUM LEVEL 143 MMOL/L (136-145); TOTAL IRON BINDING CAPACITY 301 UG/DL (250-425); TOTAL PROTEIN 6.9 G/DL (5.7-8.2); TRIGLYCERIDES LEVEL 74 MG/DL (<150)
[2024-06-22 09:47] LABS: IRON (FE) 68 UG/DL (50-170); PERCENT SATURATION 22.6 % (13.2-45.0)
[2024-06-22 09:49] LABS: THYROID STIMULATING HORMONE 1.654 uIU/ML (0.55-4.78)
== END ==
LOC: M RAD 08:13
PROVIDERS: ATTEND Family Medicine
DX: R53.83 Other fatigue (principal); I10 Essential (primary) hypertension; E03.9 Hypothyroidism, unspecified

== ENCOUNTER → 2025-01-21 | Outpatient (REF) | payer BC ==
[~2025-01-21] MED LIST changes: -VITA100024 PO; +VITA100051 PO
== END ==
LOC: M SFHCCAPE 08:39
PROVIDERS: ATTEND Physician Assistant Medical
DX: J02.9 Acute pharyngitis, unspecified (principal)